=== PATIENT | male | born 1960 | race Caucasian/White ===

== ENCOUNTER 2016-12-12 10:27 | Emergency (ER) ==
[2016-12-12 10:36] VITALS: BP 185/83
--- NOTE | 2016-12-12 10:54 | PROVIDER DOCUMENTATION ---
HPI-Abdominal Pain/GI Problem - General Chief Complaint: Abdominal Pain Stated Complaint: GROIN PAIN Time Seen by Provider: 12/12/16 10:37 Source: patient Allergies/Adverse Reactions: Patient Allergies Allergy/AdvReac Type Severity Reaction Status Date / Time prednisone Allergy SHORTNESS Verified 08/17/15 10:32 OF BREATH Home Medications: Atenolol 50 mg PO DAILY 08/17/15 Hydrocodone/Acetaminophen [Bendena 10-325 Tablet] 1 tab PO TID 08/17/15 Morphine Sulfate [Ms Contin] 100 mg PO BID 08/17/15 - History of Present Illness-ABD Nature of Presenting Problems: Pt presents today c complaints of left inguinal pain and possible hernia. He reports that three days ago he was trying to lift a heavy fountain and felt a strain in his lower abdomen. He said that that night he noticed something in his inguinal area that "keeps popping in and out." He denies any change in bowel movements. He does report some intermittent pains. No other issues or complaints. Abdominal Pain Onset Location: reports: other (see hpi) Quality of Pain: reports: aching Severity in ED: reports: mild Onset/Duration: reports: 3 days ago Timing: reports: intermittent Last BM: 24 hours ago Dark Stools Present?: reports: none noticed Rectal Bleeding: reports: none Rectal Pain: reports: none Emesis Description: reports: none Bruising or Bleeding Gums?: No Similar Symptoms Previously?: No Recently seen or treated by another doctor?: No Review of Systems - Adult - REVIEW OF SYSTEMS - ADULT Constitutional: reports: no symptoms reported. denies: chills, fever Eyes: reports: no symptoms reported. denies: discharge, dry eyes Ears, Nose, Mouth & Throat: reports: no symptoms reported. denies: ear discharge, ear pain Cardiovascular: reports: no symptoms reported. denies: chest pain, edema Respiratory: reports: no symptoms reported. denies: chronic cough, dyspnea on exertion Gastrointestinal: reports: see HPI, abdominal pain. denies: difficulty swallowing, frequent heartburn Genitourinary: reports: see HPI. denies: dysuria, discharge Musculoskeletal: reports: no symptoms reported. denies: bone pain, back pain Integumentary: reports: no symptoms reported. denies: hives, hair loss Neurological: reports: no symptoms reported. denies: ataxia, dizziness/vertigo Psychiatric: reports: no symptoms reported. denies: anxiety, anti-depressant use Endocrine: reports: no symptoms reported Hematologic/Lymphatic: reports: no symptoms reported Allergic/Immunologic: reports: no symptoms reported All Other Systems: Reviewed and Negative Past History - Adult - PAST MEDICAL HISTORY-ADULT Review of Records: reports: Old Records Reviewed, Nursing Assessment Review, Medications Reviewed, Social history reviewed & non-contributory. 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) - FAMILY HISTORY Family History: reviewed, not pertinent Physical Exam-General - PHYSICAL EXAM-ADULT Initial Vital Signs Reviewed: Yes - CONSTITUTIONAL General Appearance: appears well, alert, no apparent distress - EYES Eyes: PERRL/EOMI, pink conjunctivae - HEAD, EARS, NOSE, MOUTH & THROAT HENMT: normocephalic/atraumatic, moist mucous membranes, normal ENT inspection - NECK Neck: non-tender, full range of motion, normal inspection - RESPIRATORY Respiratory: chest non-tender, lungs clear, normal breath sounds - CARDIOVASCULAR Cardiovascular: normal peripheral pulses, regular rate, rhythm, no edema - GASTROINTESTINAL (ABDOMEN) Abdominal Exam: normal bowel sounds, soft, no organomegaly, no pulsatile mass, tenderness (R inguinal area), hernia (L inguinal (reducible)). negative: abdominal bruit, abnormal bowel sounds, distended, guarding, rigid, rebound - GENITOURINARY Male Genitalia: normal genitalia, circumcised, hernia mass (L inguinal area ( reducible)). negative: epididymal tenderness, herpes-like lesion - LYMPHATIC Lymphatic: no adenopathy - MUSCULOSKELETAL Back Exam: normal inspection, no CVA tenderness, no vertebral tenderness Extremity: normal range of motion, non-tender, normal gait - SKIN Integumentary: normal color, normal turgor, warm/dry - NEUROLOGIC Neurologic: grossly normal, no motor/sensory deficits - PSYCHIATRIC Psych/Mental Status: normal mood/affect, normal thought content, normal thought process, oriented x 3 Progress - PLAN OF CARE/RESULTS Progress/Plan/Lab Results: Vital Signs Temp Pulse Resp BP Pulse Ox 12/12/16 10:34 98.3 F 65 18 185/83 100 prednisone Allergy (Verified 08/17/15 10:32) SHORTNESS OF BREATH rash Atenolol 50 mg PO DAILY 08/17/15 Atenolol [Tenormin] 50 mg PO DAILY #14 tablet 08/17/15 Hydrocodone/Acetaminophen [Bendena 10-325 Tablet] 1 tab PO TID 08/17/15 Morphine Sulfate [Ms Contin] 100 mg PO BID 08/17/15 Hernia reduced at bedside. Will have him f/u a surgeon. He requested Dr. Ferro. Departure - Departure Time of Disposition Order: 10:53 DIAGNOSIS: Reducible left inguinal hernia Disposition: HOME 01 Certified Medical Emergency: Emergent Condition: Good Additional Instructions: Take medication as prescribed. Follow up with your surgeon. Return to the ER for any new or worsening symptoms. ED Follow Up Instructions: You have been treated by a care provider in the Emergency Department. These instructions are being provided to you so you can have an understanding of how to care for yourself upon discharge. Upon discharge from the Emergency Department, you are responsible for making arrangements for follow-up care by a physician of your choice. Take all prescribed medications as directed. Return to the Emergency Department immediately for any new or worsening symptoms. You may call the Physician Referral phone number at [phone] to obtain a list of Physicians who are taking new patients. Prescriptions: Ibuprofen [Motrin] 800 mg PO Q8H PRN PRN #20 tablet PRN Reason: inflammation Omeprazole [Prilosec] 20 mg PO DAILY@0700 #20 capsule Referrals: None,PCP [Primary Care Provider] - Carmelo Deleon MD [STAFF PHYSICIAN] - Attestation - Physician/ Mid-level Attestation Patient care was provided by Mid-level provider (TETRYL SCREEN OPERATOR/PA):: Yes Mid-level provider:: Yan Reese Mid-level documentation review:: The Mid-level provider documentation, treatment plan and medical decision making was reviewed by the physician who agrees with all treatment and medical decision making by the MLP.
== END 2016-12-12 11:10 | disposition home or self-care (01) ==
LOC: ED 10:27
DX: K40.90 Unilateral inguinal hernia, without obstruction or gangrene, not specified as recurrent (principal); R10.32 Left lower quadrant pain; R10.813 Right lower quadrant abdominal tenderness; I10 Essential (primary) hypertension; Z79.899 Other long term (current) drug therapy; Z87.442 Personal history of urinary calculi; X58.XXXA Exposure to other specified factors, initial encounter
CPT/HCPCS: 99281

== ENCOUNTER 2017-01-28 12:22 | Emergency (ER) ==
[2017-01-28 15:25] LABS: URINE CULTURE NEEDED? NO; URINE MICRO REVIEW NEEDED? NO; URINE SOURCE CLEAN CATCH
[2017-01-28 15:32] LABS: BILIRUBIN URINE NEGATIVE (NEGATIVE); BLOOD URINE NEGATIVE (NEGATIVE); COLOR YELLOW; GLUCOSE URINE NEGATIVE (NEGATIVE); LEUKOCYTES URINE NEGATIVE (NEGATIVE); NITRITE URINE NEGATIVE (NEGATIVE); PROTEIN URINE NEGATIVE (NEGATIVE); TURBIDITY URINE CLEAR (CLEAR); UROBILINOGEN URINE NORMAL (NORMAL)
[2017-01-28 15:33] LABS: UR EPITHELIAL CELLS <10 /HPF (<10); URINE BACTERIA NEGATIVE /HPF; URINE RBC <10 /HPF (<10); URINE WBC <10 /HPF (<10)
--- NOTE | 2017-01-28 16:35 | Diag Imaging Result Document ---
PROCEDURE NAME: RENAL STONE SEARCH - 01/28/2017 CT ABDOMEN AND PELVIS WITHOUT ORAL OR INTRAVENOUS CONTRAST. DOSE REDUCTION PROTOCOL. COMPARISON: 04/26/2015. FINDINGS: Normal spleen and adrenal glands. No inflammation about the pancreas or gallbladder. No focal hepatic abnormality identified on this noncontrasted exam. There is scarring to each kidney. No renal stone or hydronephrosis. Moderate atherosclerosis. No aneurysmal dilatation to the aorta. No bowel obstruction. No inflammation about the appendix. No abscess. No free air. The urinary bladder is distended and appears normal. The prostate is not enlarged. Tiny left inguinal hernia. No bowel loop within this. There are scattered diverticula. IMPRESSION: 1. No renal stones or hydronephrosis although there is scarring to each kidney. 2. Diverticulosis. 3. Tiny left inguinal hernia filled with fat. No bowel loop within this. A preliminary report was given at 4:17 p.m..
[2017-01-28 16:37] LABS: MANUAL DIFF NEEDED? NO
[2017-01-28 16:39] LABS: BASO% 0.2 % (0.0-0.8); EOS# 0.07 X1000 (0.0-0.7); EOS% 0.8 % (0.0-10.0); HEMATOCRIT 39.8 % (42.0-52.0); HEMOGLOBIN 13.4 g/dL (14.0-18.0); LYMPH# 2.02 X1000 (1.2-3.4); LYMPH% 23.1 % (20.5-51.1); MCH 32.4 PG (27-31); MCHC 33.7 g/dL (33-37); MCV 96.4 FL (81-99); MONO# 0.62 X1000 (0.11-0.59); MONO% 7.1 % (1.7-9.3); MPV 8.8 FL (7.4-10.4); NEUT% 68.8 % (42.2-75.2); PLT 217 X1000 (130-400); RBC 4.13 XMIL (4.7-6.1)
[2017-01-28 17:11] LABS: AGAP 14; ALBUMIN 3.8 g/dL (3.5-5.0); ALKALINE PHOSPHATASE 57 U/L (32-122); AMYLASE 116 U/L (20-200); BUN 11 mg/dL (8-22); CALCIUM 9.1 mg/dL (8.8-10.2); CHLORIDE 103 mmol/L (98-107); COSMO 283; GOT 20 U/L (10-34); GPT 20 U/L (10-44); LIPASE 65 U/L (13-60); POTASSIUM 4.8 mmol/L (3.5-5.1); SODIUM 142 mmol/L (136-145); TCO2 25 mmol/L (25-35); TOTAL BILIRUBIN 0.26 mg/dL (0.20-1.00); TOTAL PROTEIN 6.5 g/dL (6.3-8.3)
--- NOTE | 2017-01-28 17:12 | PROVIDER DOCUMENTATION ---
HPI-Abdominal Pain/GI Problem - General Chief Complaint: Groin Pain Stated Complaint: GROIN PAIN,PASSED BLOOD LAST NIGHT PEEING Time Seen by Provider: 01/28/17 15:08 Source: patient Allergies/Adverse Reactions: Patient Allergies Allergy/AdvReac Type Severity Reaction Status Date / Time Corticosteroids Allergy Unknown Verified 01/06/17 16:03 (Glucocorticoids) prednisone Allergy SHORTNESS Verified 01/06/17 16:03 OF BREATH Home Medications: Home Medication List Medication Instructions Recorded Confirmed Last Taken Type Atenolol 100 mg PO DAILY 08/17/15 01/06/17 01/04/17 07:00 History LISINOpril [Prinivil] 20 mg PO DAILY 12/19/16 01/06/17 01/04/17 07:00 History Clonidine HCl 0.1 mg PO TID PRN #30 tablet 01/06/17 Unknown Rx Metoprolol Succinate E.r. [Toprol 50 mg PO DAILY #30 tablet 01/06/17 Unknown Rx Xl] Polyethylene Glycol 3350 [Miralax] 17 gm PO DAILY PRN PRN #10 01/06/17 Unknown Rx [email or web address] Ciprofloxacin HCl [Cipro] 500 mg PO Q12HR #20 tablet 01/28/17 Unknown Rx - History of Present Illness-ABD Nature of Presenting Problems: 56 yo with mid abdominal pain, L testicle pain, and L inguinal hernia. Reports that he is having increasing L testicle pain and peeing blood last nite. No fever or chills. Abdominal Pain Onset Location: reports: LLQ, periumbilical Quality of Pain: reports: aching (mild symptoms one month ago, increasing pain last 2 days) Review of Systems - Adult - REVIEW OF SYSTEMS - ADULT Constitutional: reports: no symptoms reported Eyes: reports: no symptoms reported Ears, Nose, Mouth & Throat: reports: no symptoms reported Cardiovascular: reports: no symptoms reported Respiratory: reports: no symptoms reported Gastrointestinal: reports: see HPI, abdominal pain Genitourinary: reports: see HPI, hematuria, other (scrotal pain). denies: dysuria Musculoskeletal: reports: back pain Psychiatric: reports: no symptoms reported Endocrine: reports: no symptoms reported Hematologic/Lymphatic: reports: no symptoms reported Allergic/Immunologic: reports: no symptoms reported Past History - Adult - PAST MEDICAL HISTORY-ADULT Review of Records: reports: Old Records Reviewed, Nursing Assessment Review, Medications Reviewed Major Childhood Illnesses: reports: denies history Cardiovascular: reports: HTN Respiratory: reports: denies history Gastrointestinal: reports: denies history Obstetrical/Gynecological: reports: denies history Genitourinary: reports: kidney stones Musculoskeletal: reports: other (facial fractures ) Neurological: reports: denies history Psychiatric: reports: denies history Endocrine/Immune: reports: denies history 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) - PRIOR SURGERIES/PROCEDURES Surgical/Procedure History: reports: reviewed, not pertinent - IMMUNIZATION STATUS Childhood Immunizations: See Nurse Assessment Flu Vaccine: See Nurse Assessment - FAMILY HISTORY Family History: reviewed, not pertinent Physical Exam-General - PHYSICAL EXAM-ADULT Initial Vital Signs Reviewed: Yes - CONSTITUTIONAL General Appearance: appears well, alert, no apparent distress - EYES Eyes: PERRL/EOMI - HEAD, EARS, NOSE, MOUTH & THROAT HENMT: moist mucous membranes, normal ENT inspection, pharynx normal - NECK Neck: non-tender, full range of motion, supple, normal inspection - RESPIRATORY Respiratory: chest non-tender, lungs clear, normal breath sounds - CARDIOVASCULAR Cardiovascular: regular rate, rhythm, no edema, no gallop, no JVD, no murmur - GASTROINTESTINAL (ABDOMEN) Abdominal Exam: normal bowel sounds, soft, no organomegaly, tenderness ( periumbilical), other (obvious hernial L inguinal area- increases with cough) - GENITOURINARY Male Genitalia: circumcised, epididymal tenderness, hernia mass, hydrocele, testicular tenderness (L sided) Rectal Exam: deferred - LYMPHATIC Lymphatic: no adenopathy - MUSCULOSKELETAL Back Exam: normal inspection, no CVA tenderness Extremity: normal range of motion, non-tender, normal gait, normal inspection, no pedal edema - NEUROLOGIC Neurologic: grossly normal, no motor/sensory deficits - PSYCHIATRIC Psych/Mental Status: normal mood/affect, normal thought content, normal thought process, oriented x 3 Progress - PLAN OF CARE/RESULTS Progress/Plan/Lab Results: Laboratory Tests 01/28/17 01/28/17 01/28/17 13:07 16:23 16:23 WBC 8.74 RBC 4.13 L Hgb 13.4 L Hct 39.8 L MCV 96.4 MCH 32.4 H MCHC 33.7 RDW Std Deviation 15.3 H Plt Count 217 MPV 8.8 Immature Gran % (Auto) 0.0 Neut % (Auto) 68.8 Lymph % (Auto) 23.1 Desha % (Auto) 7.1 Eos % (Auto) 0.8 Baso % (Auto) 0.2 Immature Gran # (Auto) 0.00 Neut # (Auto) 6.01 Lymph # (Auto) 2.02 Desha # (Auto) 0.62 H Eos # (Auto) 0.07 Baso # (Auto) 0.02 Sodium 142 Potassium 4.8 Chloride 103 Carbon Dioxide 25 Anion Gap 14 BUN 11 Creatinine 0.9 Estimated GFR/1.73 m2 > 60 BUN/Creatinine Ratio 12 Glucose 99 Calculated Osmolality 283 Calcium 9.1 Total Bilirubin 0.26 AST 20 ALT 20 Alkaline Phosphatase 57 Total Protein 6.5 Albumin 3.8 Globulin 2.7 Albumin/Globulin Ratio 1.4 Amylase 116 Lipase 65 H Urine Source CLEAN CATCH Urine Color YELLOW Urine Turbidity CLEAR Urine pH 6.0 Ur Specific Penrose 1.010 Urine Protein NEGATIVE Ur Glucose (Stick) NEGATIVE Ur Ketones (Stick) NEGATIVE Urine Blood NEGATIVE Urine Nitrite NEGATIVE Urine Bilirubin NEGATIVE Urobilinogen Dipstick NORMAL Urine Leukocytes NEGATIVE Urine WBC (Auto) <10 Urine RBC (Auto) <10 U Epithel Cells (Auto) <10 Urine Bacteria (Auto) NEGATIVE Orders Category Date Time Status Saline Loc DIRECTED Care 01/28/17 15:23 Active NPO Diet 01/28/17 15:23 Completed RENAL STONE SEARCH [CT] Stat Exams 01/28/17 15:26 Completed US SCROTUM [US] Stat Exams 01/28/17 15:26 Draft AMYLASE [CHEM] Stat Lab 01/28/17 16:23 Completed CBC WITH ELECTRONIC DIFF [HEME] Stat Lab 01/28/17 16:23 Completed COMPREHENSIVE METABOLIC PANEL [CHEM] Stat Lab 01/28/17 16:23 Completed LIPASE [CHEM] Stat Lab 01/28/17 16:23 Completed UA Reflex [URINALYSIS W/POSS RFLX CULT] [URINALYSIS] Lab 01/28/17 13:07 Completed Stat Vital Signs Temp Pulse Resp BP Pulse Ox 01/28/17 18:30 98.3 F 72 16 156/65 100 01/28/17 14:44 98.2 F 79 18 202/82 100 01/28/17 13:00 98.3 F 81 18 176/80 100 Corticosteroids (Glucocorticoids) Allergy (Verified 01/06/17 16:03) Unknown prednisone Allergy (Verified 01/06/17 16:03) SHORTNESS OF BREATH rash Atenolol 100 mg PO DAILY 08/17/15 LISINOpril [Prinivil] 20 mg PO DAILY 12/19/16 Clonidine HCl 0.1 mg PO TID PRN #30 tablet 01/06/17 Metoprolol Succinate E.r. [Toprol Xl] 50 mg PO DAILY #30 tablet 01/06/17 Polyethylene Glycol 3350 [Miralax] 17 gm PO DAILY PRN PRN #10 powd.pack Ciprofloxacin HCl [Cipro] 500 mg PO Q12HR #20 tablet 01/28/17 Laboratory 01/28/17 01/28/17 01/28/17 16:23 16:23 13:07 WBC 8.74 RBC 4.13 L Hgb 13.4 L Hct 39.8 L MCV 96.4 MCH 32.4 H MCHC 33.7 RDW Std Deviation 15.3 H Plt Count 217 MPV 8.8 Immature Gran % (Auto) 0.0 Neut % (Auto) 68.8 Lymph % (Auto) 23.1 Desha % (Auto) 7.1 Eos % (Auto) 0.8 Baso % (Auto) 0.2 Immature Gran # (Auto) 0.00 Neut # (Auto) 6.01 Lymph # (Auto) 2.02 Desha # (Auto) 0.62 H Eos # (Auto) 0.07 Baso # (Auto) 0.02 Sodium 142 Potassium 4.8 Chloride 103 Carbon Dioxide 25 Anion Gap 14 BUN 11 Creatinine 0.9 Estimated GFR/1.73 m2 > 60 BUN/Creatinine Ratio 12 Glucose 99 Calculated Osmolality 283 Calcium 9.1 Total Bilirubin 0.26 AST 20 ALT 20 Alkaline Phosphatase 57 Total Protein 6.5 Albumin 3.8 Globulin 2.7 Albumin/Globulin Ratio 1.4 Amylase 116 Lipase 65 H Urine Source CLEAN CATCH Urine Color YELLOW Urine Turbidity CLEAR Urine pH 6.0 Ur Specific Penrose 1.010 Urine Protein NEGATIVE Ur Glucose (Stick) NEGATIVE Ur Ketones (Stick) NEGATIVE Urine Blood NEGATIVE Urine Nitrite NEGATIVE Urine Bilirubin NEGATIVE Urobilinogen Dipstick NORMAL Urine Leukocytes NEGATIVE Urine WBC (Auto) <10 Urine RBC (Auto) <10 U Epithel Cells (Auto) <10 Urine Bacteria (Auto) NEGATIVE - CT/MRI 1 CT Study: Abdomen, Pelvis (no kidney stone , small L ingiunal hernia, diverticuli) - ULTRASOUND (By Radiology) 1 US Study: other (testicular- B hydroceles) - CHANGE OF SHIFT REPORT (ED Provider) Tentative Impression of Patient: L ingiunal hernia- no incarceration, reducuble. possible mild epidydimitis Departure - Departure Time of Disposition Order: 17:41 DIAGNOSIS: Hydrocele, Groin pain Inguinal hernia Qualifiers: Laterality: bilateral Disposition: HOME 01 Certified Medical Emergency: Emergent Condition: Stable Additional Instructions: Wear supportive underwear. Use tylenol or ibuprofen for discomfort. Avoid heavy lifting. Trial cipro for 10 days. follow up with your regular doctor if symptoms persist. You need surgery for hernia. ED Follow Up Instructions: You have been treated by a care provider in the Emergency Department. These instructions are being provided to you so you can have an understanding of how to care for yourself upon discharge. Upon discharge from the Emergency Department, you are responsible for making arrangements for follow-up care by a physician of your choice. Take all prescribed medications as directed. Return to the Emergency Department immediately for any new or worsening symptoms. You may call the Physician Referral phone number at [phone] to obtain a list of Physicians who are taking new patients. Prescriptions: Ciprofloxacin HCl [Cipro] 500 mg PO Q12HR #20 tablet Referrals: None,PCP [Primary Care Provider] - Instructions: Groin Strain, Inguinal Hernia, Adult, Care After, Scrotal Swelling
--- NOTE | 2017-01-28 18:09 | Diag Imaging Result Document ---
PROCEDURE NAME: US SCROTUM - 01/28/2017 SCROTAL ULTRASOUND: FINDINGS: There is normal size and echotexture to each testicle. No testicular mass. Blood flow is documented to both testicles. There are small bilateral hydroceles. There are small bilateral epididymal cysts. The largest is on the left measuring 1.1 cm. No scrotal skin thickening. IMPRESSION: Small bilateral hydroceles with small bilateral epididymal cysts. A preliminary report was given at 4:25 PM.
[2017-01-28 18:31] VITALS: BP 156/65
== END 2017-01-28 18:30 | disposition home or self-care (01) ==
LOC: ED 12:22
DX: K40.90 Unilateral inguinal hernia, without obstruction or gangrene, not specified as recurrent (principal); N43.3 Hydrocele, unspecified; R10.32 Left lower quadrant pain; K57.90 Diverticulosis of intestine, part unspecified, without perforation or abscess without bleeding; R10.33 Periumbilical pain; N50.812 Left testicular pain; R31.9 Hematuria, unspecified; M54.9 Dorsalgia, unspecified; R10.815 Periumbilic abdominal tenderness; I10 Essential (primary) hypertension; Z79.899 Other long term (current) drug therapy; Z87.442 Personal history of urinary calculi
CPT/HCPCS: 74176; 76870; 80053; 81001; 82150; 83690; 85025

== ENCOUNTER 2019-01-22 19:18 | Inpatient (IN) ==
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
[2019-01-22] MEDS ORDERED: NS 1,000 ML IV ONE ×2 (20:45)
[2019-01-22 21:11] LABS: BASO# 0.05 X1000 (0.0-0.2); BASO% 0.4 % (0.0-0.8); EOS# 0.05 X1000 (0.0-0.7); EOS% 0.4 % (0.0-10.0); HEMATOCRIT 48.8 % (42.0-52.0); HEMOGLOBIN 16.4 g/dL (14.0-18.0); IMM GRAN# 0.07 X1000 (0.0-0.04); IMM GRAN% 0.5 % (0.0-0.5); LYMPH# 1.44 X1000 (1.2-3.4); LYMPH% 11.1 % (20.5-51.1); MCH 32.1 PG (27-31); MCHC 33.6 g/dL (33-37); MCV 95.5 FL (81-99); MONO# 0.55 X1000 (0.11-0.59); MONO% 4.3 % (1.7-9.3); MPV 10.1 FL (7.4-10.4); NEUT# 10.76 X1000 (1.4-6.5); NEUT% 83.3 % (42.2-75.2); PLT 263 X1000 (130-400); RBC 5.11 XMIL (4.7-6.1); WBC 12.92 X1000 (4.8-10.8)
[2019-01-22 21:19] LABS: INR 0.85; PROTIME 12.3 Seconds (11.0-16.0)
[2019-01-22 21:24] LABS: PTT < 20.0 Seconds (22.3-41.8)
--- NOTE | 2019-01-22 21:28 | Diag Imaging Result Doc PS360 ---
EXAM: CHEST-1 VIEW 01/22/2019 HISTORY: flu TECHNIQUE: AP portable chest at 2121 COMMENT: The appearance the chest has not changed significantly since 12/29/2016. IMPRESSION: Stable chest. Electronically signed by Ra Linares 01/22/2019 9:26 PM
[2019-01-22] MEDS ORDERED: M.V.I.-12 10 ML, FOLIC ACID 1 MG, MAGNESIUM SULFATE 1 GM, THIAMINE 100 MG in NS 1,000 ML IV ONE (21:31)
[2019-01-22] MEDS ORDERED: ATIVAN IV ONE ×2 (21:38→23:42)
[2019-01-22 21:48] LABS: CK PROFILE 160 U/L (24-204)
[2019-01-22 21:51] LABS: GOT 43 U/L (10-34)
[2019-01-22 22:28] LABS: AGAP 30; ALB/GLOB RATIO 1.1; ALBUMIN 3.9 g/dL (3.5-5.0); ALKALINE PHOSPHATASE 106 U/L (32-122); BUN 15 mg/dL (8-22); CALCIUM 9.1 mg/dL (8.8-10.2); CHLORIDE 97 mmol/L (98-107); COSMO 280; CREATININE 1.2 mg/dL (0.7-1.2); GLUCOSE 66 mg/dL (70-104); GPT 12 U/L (10-44); POTASSIUM 4.7 mmol/L (3.5-5.1); SODIUM 141 mmol/L (136-145); TCO2 14 mmol/L (25-35); TOTAL BILIRUBIN 0.33 mg/dL (0.20-1.00); TOTAL PROTEIN 7.4 g/dL (6.3-8.3)
[2019-01-22 23:37] LABS: BILIRUBIN URINE NEGATIVE (NEGATIVE); BLOOD URINE SMALL (NEGATIVE); COLOR YELLOW; GLUCOSE URINE NEGATIVE (NEGATIVE); KETONE URINE 10 mg/dL (NEGATIVE); LEUKOCYTES URINE NEGATIVE (NEGATIVE); NITRITE URINE NEGATIVE (NEGATIVE); PH URINE 5.5; PROTEIN URINE 30 mg/dL (NEGATIVE); SP GRAVITY URINE 1.009; TURBIDITY URINE CLEAR (CLEAR); URINE SOURCE CLEAN CATCH; UROBILINOGEN URINE NORMAL (NORMAL)
[2019-01-22 23:39] LABS: UR EPITHELIAL CELLS <10 /HPF (<10); URINE BACTERIA NEGATIVE /HPF; URINE RBC <10 /HPF (<10); URINE WBC <10 /HPF (<10)
[2019-01-22] MEDS ORDERED: PROTONIX PO ONE (23:52)
[2019-01-22] MEDS ORDERED: MOTRIN PO ONE (23:53)
[2019-01-22 23:54] LABS: UR AMPHETAMINES QUAL NONE DETECTED (NONE DETECT); UR BARBITUATES QUAL NONE DETECTED (NONE DETECT); UR BENZODIAZEPIN QUAL NONE DETECTED (NONE DETECT); UR CANNABINOIDS QUAL NONE DETECTED (NONE DETECT); UR COCAINE QUAL NONE DETECTED (NONE DETECT); UR METHADONE QUAL NONE DETECTED (NONE DETECT); UR OPIATES QUAL NONE DETECTED (NONE DETECT); UR OXYCODONE QUAL NONE DETECTED (NONE DETECT); UR PCP QUAL NONE DETECTED (NONE DETECT)
[2019-01-23] MEDS ORDERED: HALDOL IM ONE (03:21)
[2019-01-23] MEDS ORDERED: TYLENOL PO ONE (04:23)
--- NOTE | 2019-01-23 06:57 | EKG Report ---
Test Performed on : 01/22/2019 11:43:51 PM Test Reason : tachycadia Blood Pressure : / mmHG Vent. Rate : 108 BPM Atrial Rate : 108 BPM P-R Int : 116 ms QRS Dur : 074 ms QT Int : 366 ms P-R-T Axes : 077 067 041 degrees QTc Int : 490 ms Sinus tachycardia. Otherwise normal ECG When compared with ECG of 15-JUN-2017 05:08, ST no longer depressed in Inferior leads ST no longer depressed in Anterolateral leads Nonspecific T wave abnormality has replaced inverted T waves in Inferior leads Unconfirmed Result
[2019-01-23] MEDS ORDERED: NS 1,000 ML IV ONE (07:12)
[2019-01-23 08:45] LABS: AGAP 21; BUN 22 mg/dL (8-22); CALCIUM 7.7 mg/dL (8.8-10.2); CHLORIDE 102 mmol/L (98-107); COSMO 278; CREATININE 1.2 mg/dL (0.7-1.2); ESTIMATED GFR > 60; GLUCOSE 53 mg/dL (70-104); POTASSIUM 4.4 mmol/L (3.5-5.1); SODIUM 139 mmol/L (136-145); TCO2 16 mmol/L (25-35)
[2019-01-23 09:20] LABS: ALLEN TEST YES; BE -10.6 mmoll (-3.0-3.0); BLOOD TYPE ARTERIAL; HCO3-(ACT) 16.6 mmoll (20.0-26.0); METHB 1.3 % (0.0-1.5); O2(CT) 17.3 mL/dL (15.0-23.0); O2HB 95.8 % (95.0-99.0); PCO2(98.6) 22 mmHg (35-45); PO2(98.6) 94 mmHg (60-100); SAMPLE BLOOD; SAO2 98.8 % (95.0-100.0); THB 12.8 g/dL (11.5-17.4); pH(98.6) 7.37 (7.35-7.45)
[2019-01-23 09:21] LABS: MODALITY CANNULA
[2019-01-23 10:17] LABS: ACETAMINOPHEN 13.5 ug/mL (10-30); SALICYLATES < 3.00 mg/dL (3-10)
[2019-01-23 10:29] LABS: ACETONE SERUM NEGATIVE (NEGATIVE)
[2019-01-23] MEDS ORDERED: ATIVAN IV ONE (10:41)
[2019-01-23] MEDS ORDERED: XOPENEX NEB INH PRN (11:09)
[2019-01-23] MEDS ORDERED: ZOFRAN IV PRN (11:09)
[2019-01-23] MEDS ORDERED: SODIUM CHLORIDE 0.9% INJ SCH (11:15)
[2019-01-23] MEDS: PROTONIX IV SCH (11:50)
[2019-01-23] MEDS: ATIVAN IV PRN ×2 (11:50→20:08)
[2019-01-23] MEDS: LIBRIUM PO SCH ×2 (12:15→18:15)
[2019-01-23 12:53] LABS: HEMOGLOBIN A1C 4.7 % (4.8-6.0)
[2019-01-23] MEDS: NS 1,000 ML IV SCH ×3 (13:08→20:52)
[2019-01-23 13:12] LABS: CK INDEX 8.1 (0.0-2.5); CK-MB 40.95 ng/mL (0.0-5.0)
[2019-01-23] MEDS: NICODERM PATCH TD SCH (13:59)
--- NOTE | 2019-01-23 16:43 | HISTORY AND PHYSICAL ---
PRIMARY CARE PHYSICIAN: Dr. Tung Euceda CHIEF COMPLAINT: Alcohol withdrawal. HISTORY OF PRESENT ILLNESS: Mr. Lopez is a 58-year-old male with a history of hypertension, nicotine dependence and alcohol dependence, who comes to the ER after he had been on a multiple day alcohol binge. There were reports of suicide ideation when he first arrived to the ER; however, he denies this currently. He reports that he has had multiple bottles of vodka over the past few days for reasons that are unclear at this time. It is possible there is some family dispute. He currently complains of alcohol withdrawal symptoms. He is tremulous and anxious. Otherwise, he denies any chest pain or abdominal pain. No nausea, vomiting or diarrhea at this time. When he arrived in the ER, his alcohol level was above 400, and he was acidotic. He received fluids overnight into the morning. This morning, his blood work still shows acidosis with a CO2 of 16 and an anion gap of 21, and his lactate has improved from 3.8 down from 6.5. He is tachycardic, however, and given the level of withdrawal, we will go ahead and put him in the ICU. PAST MEDICAL HISTORY: 1. Hypertension. 2. Nicotine dependence. 3. Alcohol dependence. 4. Possible h/o paroxysmal atrial fibrillation (not relayed by patient, found in chart records). PAST SURGICAL HISTORY: He has had facial reconstruction after a crush injury playing sports and a hernia repair. SOCIAL HISTORY: He smokes half a pack a day. He binges on vodka once every 2 weeks. Denies drug use. He is on disability for neck pain. He is . He has one child. FAMILY HISTORY: Noncontributory. REVIEW OF SYSTEMS: A 14-point review of systems was obtained and found to be negative with the exception of the HPI. ALLERGIES: Prednisone and glucocorticoids. HOME MEDICATIONS: Norvasc 10 mg daily, atenolol 25 mg p.o. b.i.d., Prinivil 20 mg daily, Motrin 600 mg as needed for pain. PHYSICAL EXAMINATION: VITAL SIGNS: Blood pressure is 127/72, heart rate is 103, respiratory rate is 16, O2 saturation 98% on room air, temperature is 98.7. GENERAL: This is a chronically ill-appearing 58-year-old male lying in hospital bed, in no acute distress. NEUROLOGICAL: He is awake and alert, tremulous. Follows commands without focal deficits. HEENT: Head is atraumatic and normocephalic. Pupils are equal, round and reactive to light. Oral mucosa is dry. NECK: Trachea is midline. There is no JVD. CHEST: Diminished but clear to auscultation. CARDIOVASCULAR: Regular rate and rhythm. S1 and S2 noted. There are no murmurs. GASTROINTESTINAL: Soft, nondistended and nontender. Bowel sounds positive. EXTREMITIES: No edema. Pulses 1+ bilaterally. DIAGNOSTIC DATA: Chest x-ray is negative. EKG sinus tachycardia with nonspecific T wave changes. WBC is 12.92, hemoglobin 16.4, hematocrit 48.8, platelet count 263. INR is 0.85. ABG on nasal cannula shows pH of 7.37, CO2 is 22, pO2 is 94, bicarb 16.6. Sodium is 139, potassium 4.4, chloride 102, CO2 is 16, anion gap 21, BUN is 22, creatinine 1.2, glucose 53, calcium 7.7, magnesium 2.2. Lactic acid repeat is 3.8. UA is negative for UTI. Toxicology shows salicylate level is negative. Acetaminophen level is 13.5. Drug screen is negative. Most recent alcohol level is 43. Acetone level is negative. ASSESSMENT AND PLAN: 1. Alcohol intoxication. The patient will be placed on a high dose Librium taper with p.r.n. Ativan and banana bag. We will check his folate and B12. 2. Metabolic acidosis. The patient does have a lactic acidosis which is likely from tissue hypoperfusion due to volume depletion/hypotension. He did have a few blood pressures in the 80s when he first arrived, but this was last night. Chest x-ray is negative. There is no nidus of infection at this time. 3. Nicotine dependence. We have advised the patient to quit smoking. We will write a nicotine patch and continue cessation education. 4. Hypertension, stable. Continue home medications. 5. Alcohol dependence. We are providing support for alcohol withdrawal. The patient will need manager intermediate assistance with Alcoholics Anonymous or psychotherapy or both. We will continue to educate him on a daily basis. 6. Paroxysmal atrial fibrillation. Currently sinus rhythm. He does not meet criteria for anticoagulation. ASA would be recommended given CHADs score (1 for HTN). Given the blood thinning properties of alcohol and his current intoxication, would hold until he is a bit more stable to reduce the chance of bleeding. 7. DVT prophylaxis with SCDs. Further recommendations to follow. Dictated by MURTAZA Guerin for Juana Preciado MD cc: MURTAZA Guerin MD I performed a face to face encounter on the patient. I reviewed all labs and imaging on the patient. I agree with the H&P as dictated. The patient presented to the ER with acute alcohol intoxication. On exam, the patient is alert and oriented x 2. His breath sounds are clear to auscultation bilaterally. He appears to be dehydrated with poor skin turgor. The patient will be admitted to the ICU and started on the librium and prn ativan. MTDD
[2019-01-23 19:15] LABS: CK-MB 69.45 ng/mL (0.0-5.0)
[2019-01-23] MEDS ORDERED: ASPIRIN EC PO ONE (19:54)
[2019-01-23] MEDS ORDERED: LOVENOX SUBQ SCH (20:00)
[2019-01-23] MEDS ORDERED: LABETALOL IV PRN (20:00)
[2019-01-23] MEDS: LIPITOR PO SCH (21:05)
[2019-01-23] MEDS: LOPRESSOR PO SCH (21:06)
[2019-01-23 21:16] LABS: CALCIUM 7.9 mg/dL (8.8-10.2); CREATININE 1.3 mg/dL (0.7-1.2); MAGNESIUM 2.1 mg/dL (1.5-2.7); PHOSPHORUS 2.5 mg/dL (2.7-4.5); POTASSIUM 4.1 mmol/L (3.5-5.1)
[2019-01-24] MEDS: M.V.I.-12 10 ML, FOLIC ACID 1 MG, MAGNESIUM SULFATE 1 GM, THIAMINE 100 MG in NS 1,000 ML IV SCH ×2 (00:13→23:08)
[2019-01-24] MEDS: ATIVAN IV PRN (00:13)
[2019-01-24] MEDS: LIBRIUM PO SCH ×5 (00:19→23:34)
[2019-01-24 01:56] LABS: CK INDEX 7.4 (0.0-2.5); CK-MB 67.55 ng/mL (0.0-5.0)
[2019-01-24 01:59] LABS: HEMATOCRIT 35.9 % (42.0-52.0); HEMOGLOBIN 12.2 g/dL (14.0-18.0); MCV 94.2 FL (81-99); MPV 8.7 FL (7.4-10.4); RBC 3.81 XMIL (4.7-6.1); RDW 12.7 % (11.5-14.5); WBC 7.6 X1000 (4.8-10.8)
[2019-01-24] MEDS ORDERED: TYLENOL PO ONE (02:20)
--- NOTE | 2019-01-24 06:06 | Diag Imaging Result Doc PS360 ---
EXAM : CT HEAD/C-SPINE W/O CONTRAST HISTORY: Fall,Pt sts he hit his head,neck pain,AMS TECHNIQUE: 1. CT head without contrast 2. CT cervical spine without contrast COMPARISON: Head compared to 10/15/2018 FINDINGS: Head: No parenchymal hemorrhage. No epidural or subdural hematoma. No subarachnoid hemorrhage. No mass identified on this noncontrasted exam. No hydrocephalus. No skull fracture. Cervical spine: Slight reversal of the normal curvature most pronounced at C4-5.. No precervical soft tissue swelling. No subluxation. No fracture. Mild to moderate degenerative changes in the lower cervical spine. IMPRESSION: Head: No hemorrhage. No injury. Cervical spine: No acute fracture. A preliminary report was given at 4:13 AM This exam was performed using automated exposure control, adjustment of mA or kV according to patient size, and/or use of iterative reconstruction technique. Electronically signed by Maximiliano Bagley 01/24/2019 6:03 AM
[2019-01-24 06:46] LABS: BASO# 0.01 X1000 (0.0-0.2); BASO% 0.1 % (0.0-0.8); EOS# 0.09 X1000 (0.0-0.7); EOS% 1.1 % (0.0-10.0); HEMATOCRIT 38.5 % (42.0-52.0); HEMOGLOBIN 12.9 g/dL (14.0-18.0); LYMPH# 0.87 X1000 (1.2-3.4); LYMPH% 10.5 % (20.5-51.1); MCHC 33.5 g/dL (33-37); MCV 95.5 FL (81-99); MONO# 0.74 X1000 (0.11-0.59); MPV 8.9 FL (7.4-10.4); NEUT# 6.55 X1000 (1.4-6.5); NEUT% 79.3 % (42.2-75.2); PLT 113 X1000 (130-400); RBC 4.03 XMIL (4.7-6.1); RDW 12.7 % (11.5-14.5); WBC 8.26 X1000 (4.8-10.8)
[2019-01-24 07:18] LABS: AGAP 11; ALB/GLOB RATIO 1.3; ALBUMIN 3.2 g/dL (3.5-5.0); ALKALINE PHOSPHATASE 82 U/L (32-122); BUN 14 mg/dL (8-22); CALCIUM 8.6 mg/dL (8.8-10.2); CHLORIDE 107 mmol/L (98-107); COSMO 283; ESTIMATED GFR > 60; GLUCOSE 92 mg/dL (70-104); GOT 62 U/L (10-34); GPT 20 U/L (10-44); POTASSIUM 4.6 mmol/L (3.5-5.1); SODIUM 142 mmol/L (136-145); TCO2 24 mmol/L (25-35); TOTAL BILIRUBIN 0.79 mg/dL (0.20-1.00); TOTAL PROTEIN 5.7 g/dL (6.3-8.3)
[2019-01-24 07:19] LABS: CHOLESTEROL 152 mg/dL (0-200); HDL 57 mg/dL (35-55); LDL 62 mg/dL; LIPASE 63 U/L (13-60); MAGNESIUM 2.2 mg/dL (1.5-2.7); TRIGLYCERIDES 166 mg/dL (39-160); VLDL 33 mg/dL
[2019-01-24] MEDS: LOPRESSOR PO SCH ×2 (08:49→20:25)
[2019-01-24] MEDS: DILAUDID IV PRN ×3 (08:49→20:41)
[2019-01-24] MEDS: VITAMIN B-1 PO SCH (08:49)
[2019-01-24] MEDS: THERA M PLUS PO SCH (08:49)
[2019-01-24] MEDS: NICODERM PATCH TD SCH (08:53)
[2019-01-24] MEDS ORDERED: M.V.I.-12 10 ML, FOLIC ACID 1 MG, MAGNESIUM SULFATE 1 GM, THIAMINE 100 MG in NS 1,000 ML IV SCH (09:00)
[2019-01-24 09:14] LABS: CK-MB 57.91 ng/mL (0.0-5.0)
[2019-01-24] MEDS: PROTONIX IV SCH (11:48)
[2019-01-24] MEDS: NS 1,000 ML IV SCH ×2 (12:00→23:01)
--- NOTE | 2019-01-24 16:02 | PROGRESS NOTE ---
DATE: 01/24/2019 SUBJECTIVE: The patient is resting comfortably. He has periods of confusion. He does complain of pain that is generalized. OBJECTIVE: Vital Signs: Temperature 98.5 degrees, blood pressure 154/94, heart rate 75, respirations 16, O2 saturations 100% on room air. General: This is a chronically ill-appearing elderly male lying in bed in no acute distress. Heart: S1, S2 normal. Regular rate and rhythm. Lungs: Equal air entry bilaterally. No crackles. No rales. Abdomen: Positive bowel sounds. Soft, nontender, nondistended. Extremities: No edema, no cyanosis. Neurologic : The patient is oriented to place and time. LABS: White blood cell count 8.2, hemoglobin 12, hematocrit 38, platelets 113, 000, sodium 142, potassium 4.6, chloride 107, CO2 24, BUN 14, creatinine 1, glucose 104, troponin 0.42. ASSESSMENT AND PLAN: 1. Acute alcohol intoxication. We will continue to monitor the patient closely. The patient is currently on Librium and p.r.n. Ativan. 2. Elevated troponin. The patient is currently on Lopressor and Lipitor and aspirin. Cardiology has been consulted for further recommendations. 3. Tobacco dependence. Continue on the NicoDerm patch. 4. Gastrointestinal prophylaxis. Continue on Protonix. 5. Thrombocytopenia. Will monitor the patient's platelet count closely. cc: Juana Preciado MD MTDD
[2019-01-24] MEDS: ASPIRIN EC PO SCH (17:12)
[2019-01-24] MEDS: LIPITOR PO SCH (20:25)
[2019-01-25] MEDS: DILAUDID IV PRN ×4 (03:24→20:14)
[2019-01-25] MEDS: LIBRIUM PO SCH ×4 (05:24→23:20)
[2019-01-25 06:13] LABS: BASO# 0.02 X1000 (0.0-0.2); BASO% 0.2 % (0.0-0.8); EOS# 0.19 X1000 (0.0-0.7); EOS% 2.2 % (0.0-10.0); HEMATOCRIT 40.2 % (42.0-52.0); HEMOGLOBIN 13.6 g/dL (14.0-18.0); LYMPH% 12.8 % (20.5-51.1); MCH 32.4 PG (27-31); MCHC 33.8 g/dL (33-37); MCV 95.7 FL (81-99); MONO# 1.01 X1000 (0.11-0.59); MONO% 11.8 % (1.7-9.3); MPV 9.5 FL (7.4-10.4); NEUT# 6.26 X1000 (1.4-6.5); PLT 91 X1000 (130-400); RDW 12.6 % (11.5-14.5); WBC 8.58 X1000 (4.8-10.8)
[2019-01-25 06:38] LABS: AGAP 10; ALBUMIN 2.9 g/dL (3.5-5.0); ALKALINE PHOSPHATASE 77 U/L (32-122); BUN 6 mg/dL (8-22); CALCIUM 8.4 mg/dL (8.8-10.2); CHLORIDE 104 mmol/L (98-107); COSMO 271; CREATININE 0.7 mg/dL (0.7-1.2); ESTIMATED GFR > 60; GLUCOSE 88 mg/dL (70-104); GOT 47 U/L (10-34); GPT 18 U/L (10-44); MAGNESIUM 2.3 mg/dL (1.5-2.7); POTASSIUM 3.6 mmol/L (3.5-5.1); SODIUM 137 mmol/L (136-145); TCO2 23 mmol/L (25-35); TOTAL BILIRUBIN 0.55 mg/dL (0.20-1.00); TOTAL PROTEIN 5.7 g/dL (6.3-8.3)
[2019-01-25] MEDS: NS 1,000 ML IV SCH ×2 (06:46→12:14)
[2019-01-25] MEDS: NICODERM PATCH TD SCH (08:06)
[2019-01-25] MEDS: VITAMIN B-1 PO SCH (08:06)
[2019-01-25] MEDS: ASPIRIN EC PO SCH (08:06)
[2019-01-25] MEDS: THERA M PLUS PO SCH (08:06)
[2019-01-25] MEDS: LOPRESSOR PO SCH ×2 (08:07→20:11)
--- NOTE | 2019-01-25 09:56 | ECHO REPORT ---
ORDER DATE: 01/24/2019 MEASUREMENTS: Left ventricular end-diastolic diameter 4.3, end-systolic murmur 3.3, septal thickness 0.9, posterior wall thickness 0.9, aortic root 3.3, left atrium 3.6. SUMMARY: 1. Technically difficult study due to limited acoustic window quality. 2. Aortic valve is not well imaged but appears to open adequately on 2-dimensional images. Peak gradient across the aortic valve is less than 10 mmHg. Mitral and tricuspid valves are without evidence of structural abnormality, while pulmonic valve is not well-demonstrated. There is mild mitral regurgitation and trace tricuspid regurgitation. The aortic root is normal in size. 3. Normal left ventricular dimensions suggested. Estimated left ejection fraction appears to be approximately 50%. No obvious regional wall motion abnormality can be appreciated. Doppler suggests grade 1 left ventricular diastolic dysfunction. Left atrium, right atrium, and right ventricle are normal in size with grossly preserved right ventricular systolic function. 4. No pericardial effusion. 5. Appearance of inferior vena cava suggests normal central venous pressure. cc: MD Juana Cameron MD
[2019-01-25] MEDS: PROTONIX IV SCH (10:41)
--- NOTE | 2019-01-25 13:05 | PROGRESS NOTE ---
DATE: 01/25/2019 SUBJECTIVE: The patient is sitting up eating breakfast. He reports generalized aches and pains but otherwise has no other complaints. OBJECTIVE: Vital Signs: Temperature 98.4 degrees, blood pressure 152/91, heart rate 68, respirations 10, O2 saturation 97% on room air. General: General this is an elderly male lying in bed in no acute distress. Heart: S1, S2 normal. Regular rate and rhythm. Lungs: Equal air entry bilaterally. No crackles. No rales. Abdomen: Positive bowel sounds. Soft, nontender, nondistended. Extremities: No edema. No cyanosis. Neurologic: The patient is alert and oriented x3. LABORATORY DATA: White blood cell count 8.5, hemoglobin 13, hematocrit 40, platelets 91,000. Sodium 137, potassium 3.6, chloride 104, CO2 of 23, BUN 6, creatinine 0.7, glucose 88, calcium 8.4. ASSESSMENT AND PLAN: 1. Acute alcohol intoxication. Improved. Continue on Librium. 2. Elevated troponin. The patient denies having any chest pain. Continue on aspirin. 3. Thrombocytopenia. We will continue to monitor the patient's platelet count closely. The patient does not appear to have any bleeding. We will order an abdominal ultrasound to assess the spleen. 4. Gastrointestinal prophylaxis. Continue on protonix. cc: Juana Preciado MD MTDD
[2019-01-25] MEDS: LIPITOR PO SCH (20:11)
[2019-01-25] MEDS: M.V.I.-12 10 ML, FOLIC ACID 1 MG, MAGNESIUM SULFATE 1 GM, THIAMINE 100 MG in NS 1,000 ML IV SCH (23:20)
[2019-01-26] MEDS: DILAUDID IV PRN ×5 (02:54→20:50)
[2019-01-26 05:41] LABS: BASO# 0.01 X1000 (0.0-0.2); BASO% 0.1 % (0.0-0.8); EOS# 0.28 X1000 (0.0-0.7); HEMATOCRIT 40.3 % (42.0-52.0); HEMOGLOBIN 13.8 g/dL (14.0-18.0); LYMPH# 1.12 X1000 (1.2-3.4); LYMPH% 15.9 % (20.5-51.1); MCH 32.5 PG (27-31); MCHC 34.2 g/dL (33-37); MONO# 0.63 X1000 (0.11-0.59); MONO% 8.9 % (1.7-9.3); MPV 9.2 FL (7.4-10.4); NEUT# 5.01 X1000 (1.4-6.5); NEUT% 71.1 % (42.2-75.2); PLT 86 X1000 (130-400); RBC 4.24 XMIL (4.7-6.1); RDW 12.3 % (11.5-14.5); WBC 7.05 X1000 (4.8-10.8)
[2019-01-26] MEDS: LIBRIUM PO SCH (06:09)
[2019-01-26 06:49] LABS: AGAP 11; ALB/GLOB RATIO 1.1; ALBUMIN 3.3 g/dL (3.5-5.0); ALKALINE PHOSPHATASE 82 U/L (32-122); BUN 6 mg/dL (8-22); CALCIUM 8.8 mg/dL (8.8-10.2); CHLORIDE 105 mmol/L (98-107); COSMO 278; CREATININE 0.7 mg/dL (0.7-1.2); ESTIMATED GFR > 60; GLUCOSE 90 mg/dL (70-104); GOT 36 U/L (10-34); GPT 20 U/L (10-44); SODIUM 141 mmol/L (136-145); TCO2 25 mmol/L (25-35); TOTAL BILIRUBIN 0.53 mg/dL (0.20-1.00); TOTAL PROTEIN 6.3 g/dL (6.3-8.3)
--- NOTE | 2019-01-26 07:52 | EKG Report ---
Test Performed on : 01/24/2019 06:49:41 AM Test Reason : chest pain Blood Pressure : / mmHG Vent. Rate : 082 BPM Atrial Rate : 082 BPM P-R Int : 140 ms QRS Dur : 092 ms QT Int : 404 ms P-R-T Axes : 046 041 028 degrees QTc Int : 472 ms Normal sinus rhythm. Normal ECG When compared with ECG of 23-JAN-2019 20:15, (Unconfirmed) premature ventricular complexes. are no longer present Confirmed by Wood LYMAN, Rex Mcelroy ([id number]) on 01/26/2019 9:12:37 PM
--- NOTE | 2019-01-26 07:57 | EKG Report ---
Test Performed on : 01/23/2019 8:15:36 PM Test Reason : KL Blood Pressure : / mmHG Vent. Rate : 104 BPM Atrial Rate : 104 BPM P-R Int : 148 ms QRS Dur : 086 ms QT Int : 366 ms P-R-T Axes : 063 041 028 degrees QTc Int : 481 ms Sinus tachycardia. with occasional premature ventricular complexes. Otherwise normal ECG When compared with ECG of 22-JAN-2019 23:43, (Unconfirmed) premature ventricular complexes. are now present Nonspecific T wave abnormality, improved in Inferior leads Confirmed by Rex Muir MD ([id number]) on 01/26/2019 9:11:38 PM
[2019-01-26] MEDS: LOPRESSOR PO SCH ×2 (08:11→20:49)
[2019-01-26] MEDS: VITAMIN B-1 PO SCH (08:11)
[2019-01-26] MEDS: THERA M PLUS PO SCH (08:11)
[2019-01-26] MEDS: ASPIRIN EC PO SCH (08:11)
[2019-01-26] MEDS: NICODERM PATCH TD SCH (08:12)
--- NOTE | 2019-01-26 09:46 | CONSULTATION ---
DATE OF CONSULTATION: 01/24/2019 IMPRESSION: 1. Abnormal troponin level. Clinical presentation with alcohol withdrawal syndrome. Absence of chest pain, no acute ischemic changes on ECG, and pattern of cardiac enzymes probably most consistent with noncardiac/skeletal muscle etiology such as rhabdomyolysis. CPK-MB index, however, is abnormal, and probably merits further investigation. 2. Currently admitted with alcohol withdrawal syndrome. 3. Hypertension. 4. Nicotine dependence. RECOMMENDATIONS: 1. Echocardiography. 2. As patient recuperates, consider further the introduction of stress testing for screening purposes. HISTORY: This is a 58-year-old white male with a past history of hypertension, alcohol dependence, and nicotine dependence who was admitted after he presented to the emergency room following a multiple-day alcohol binge. He reportedly demonstrated suicidal ideation. He was tremulous and anxious. He had no chest pain. He was treated with IV fluids. He manifested tachycardia on presentation, and an elevated lactate level, and metabolic acidosis with an anion gap of 21. He has not had any chest discomfort, and reiterates this to me. He is not aware of any previous cardiac problems. Cardiac enzymes were obtained and demonstrated an abnormal troponin level, prompting cardiology consultation. PAST MEDICAL HISTORY: 1. Hypertension. 2. Alcohol dependence. 3. Nicotine dependence. PAST SURGICAL HISTORY: Facial reconstruction following a crush injury while playing baseball. He is status post hernia repair. ALLERGIES: He is allergic or intolerant to corticosteroids and prednisone. MEDICATIONS PRIOR TO ADMISSION: As listed. SOCIAL HISTORY: He smokes one and a half packs of cigarettes per day. He binges on vodka about every 2 weeks. He is . He is on disability. FAMILY HISTORY: Negative for premature coronary artery disease REVIEW OF SYSTEMS: PULMONARY: Negative. GASTROINTESTINAL: Negative. CONSTITUTIONAL: Negative beyond history of present illness. Remainder of review of systems negative/noncontributory beyond history of present illness with 14 total systems reviewed. PHYSICAL EXAMINATION: GENERAL: This is a middle-aged white male who appears older than stated age, in no significant distress. VITAL SIGNS: Blood pressure 151/99, heart rate 86, oxygen saturation 100%. HEENT: Extraocular muscles appear intact. Mucous membranes are moist. NECK: Supple without jugular venous distention. There are no carotid bruits. CHEST: Clear to auscultation. CARDIAC: Exam reveals a regular rate and rhythm without appreciable murmur or gallop. ABDOMEN: Soft. Bowel sounds audible. EXTREMITIES: Without edema. NEUROLOGIC: Does seem to be alert and fully oriented. Speech is full. He moves all 4 extremities equally well. DIAGNOSTICS: ECG obtained during admission demonstrated sinus tachycardia but is was otherwise within normal limits. LABORATORY DATA: White blood cell count 8.26, hematocrit 38.5, hemoglobin 12.9, platelet count 113. Sodium 142, potassium 4.6, chloride 107, carbon dioxide 24, BUN 14, creatinine 1.0, glucose 104. Initial troponin less than 0.01 with followup troponins of 0.338, 0.445, and 0.423. Initial CPK was 160, with followup CPKs of 506 and 879 on January 23 and January 24 respectively. CPK- MB indices ranged from 8.1 to 7.0. cc: River Elliott MD
--- NOTE | 2019-01-26 10:46 | Diag Imaging Result Doc PS360 ---
EXAM: US SPLEEN (LIMITED) 01/26/2019 HISTORY: assess for splenomegaly TECHNIQUE: Ultrasound of the spleen. COMMENT: The spleen measures 11.6 x 5.2 x 12.5 cm. This is within the normal range. The echogenicity is normal in appearance. IMPRESSION: No definite abnormality. Electronically signed by Ra Linares 01/26/2019 10:44 AM
[2019-01-26] MEDS: PROTONIX IV SCH (12:00)
--- NOTE | 2019-01-26 16:32 | PROGRESS NOTE ---
DATE: 01/26/2019 CARDIOLOGY FOLLOW-UP NOTE: SUBJECTIVE: Patient continues without chest discomfort or dyspnea on room air. His confusion appears to have improved, although he seems to be still mildly confused. OBJECTIVE: Vital signs: Blood pressure 161/91, heart rate 92, oxygen saturation 99% on room air. Neck: There is no significant jugular venous distention. Chest: Clear to auscultation. Cardiac: Exam reveals a regular rate and rhythm without appreciable murmur, rub, or gallop. Extremities: Without edema. LABORATORY DATA: Includes a white blood cell count of 7.05, hematocrit 40.3, hemoglobin 13.8, platelet count of 86,000. Sodium 141, potassium 4.0, chloride 105, carbon dioxide 25, BUN 6, creatinine 0.7. IMPRESSION: 1. Recent abnormal troponin level and CPK-MB index. Clinical significance unclear. There has been no chest pain or changes on ECG. 2. Currently admitted with alcohol withdrawal syndrome, which is clinically stabilized. 3. Hypertension. 4. Nicotine dependence. RECOMMENDATIONS: Arrange screening stress myocardial perfusion study. If this is negative, it would be reasonable for patient to be discharged to home from a cardiovascular standpoint. cc: River Elliott MD
[2019-01-26] MEDS: LIPITOR PO SCH (20:50)
--- NOTE | 2019-01-26 20:50 | PROGRESS NOTE ---
DATE: 01/26/2019 SUBJECTIVE: The patient is resting comfortably in bed. He has no complaints at this time. OBJECTIVE: Vital Signs: Temperature 98.1 degrees, blood pressure 161/91, heart rate 92, respirations 20, O2 saturation 99% on room air. General: This is a chronically ill-appearing elderly male lying in bed in no acute distress. Heart: S1, S2 normal. Regular rate and rhythm. Lungs: Equal air entry bilaterally. No crackles, no rales. Abdomen: Positive bowel sounds. Soft, nontender, nondistended. Extremities: No edema, no cyanosis. Neuro: The patient is alert and oriented x3. LABS: Hemoglobin 13, hematocrit 40, platelets 86,000, sodium 141, potassium 4, chloride 105, CO2 25, BUN 6, creatinine 0.7, glucose 90. ASSESSMENT AND PLAN: 1. Acute alcohol intoxication. Resolved. 2. Thrombocytopenia. The splenic edge ultrasound was unremarkable. The HIT antibody assay is pending. Will consult Hematology. 3. Elevated troponin. The patient is scheduled to undergo a stress test tomorrow. 4. Gastrointestinal prophylaxis. Continue on Protonix. 5. Alcohol abuse. The patient has been counseled about cessation. 6. Will consult physical therapy. cc: Juana Preciado MD MTDD
[2019-01-27] MEDS: DILAUDID IV PRN ×4 (01:39→23:02)
[2019-01-27] MEDS: M.V.I.-12 10 ML, FOLIC ACID 1 MG, MAGNESIUM SULFATE 1 GM, THIAMINE 100 MG in NS 1,000 ML IV SCH (01:40)
[2019-01-27 07:06] LABS: HEMATOCRIT 40.6 % (42.0-52.0); HEMOGLOBIN 13.8 g/dL (14.0-18.0); MCH 32.4 PG (27-31); MCV 95.3 FL (81-99); MPV 9.5 FL (7.4-10.4); RBC 4.26 XMIL (4.7-6.1); RDW 12.3 % (11.5-14.5); WBC 6.47 X1000 (4.8-10.8)
[2019-01-27 07:17] LABS: AGAP 12; ALB/GLOB RATIO 1.1; ALBUMIN 3.3 g/dL (3.5-5.0); ALKALINE PHOSPHATASE 76 U/L (32-122); BUN 6 mg/dL (8-22); CALCIUM 8.1 mg/dL (8.8-10.2); CHLORIDE 104 mmol/L (98-107); COSMO 276; CREATININE 0.7 mg/dL (0.7-1.2); ESTIMATED GFR > 60; GLUCOSE 82 mg/dL (70-104); GOT 34 U/L (10-34); GPT 23 U/L (10-44); POTASSIUM 3.4 mmol/L (3.5-5.1); SODIUM 140 mmol/L (136-145); TCO2 24 mmol/L (25-35); TOTAL PROTEIN 6.2 g/dL (6.3-8.3)
[2019-01-27] MEDS ORDERED: LEXISCAN ONE (08:06)
[2019-01-27] MEDS ORDERED: AMINOPHYLLINE ONE (08:23)
[2019-01-27] MEDS: NICODERM PATCH TD SCH (11:13)
[2019-01-27] MEDS: LOPRESSOR PO SCH ×2 (11:13→23:02)
[2019-01-27] MEDS: THERA M PLUS PO SCH (11:13)
[2019-01-27] MEDS: VITAMIN B-1 PO SCH (11:13)
[2019-01-27] MEDS: ASPIRIN EC PO SCH (11:13)
[2019-01-27] MEDS: PROTONIX IV SCH (11:22)
[2019-01-27] MEDS ORDERED: KLOR-CON PO ONE (11:53)
[2019-01-27 12:28] LABS: PHOSPHORUS 3.1 mg/dL (2.7-4.5)
[2019-01-27] MEDS: FOLIC ACID PO SCH (12:34)
--- NOTE | 2019-01-27 12:56 | PROGRESS NOTE ---
DATE: 01/27/2019 SUBJECTIVE: The patient is resting comfortable in bed. The patient is awake, not in any obvious distress. OBJECTIVE: Vital signs: Vital signs are as follows: Temperature 98.6 degrees, pulse 97, respirations 20, blood pressure 144/84, oxygen saturation is 99%. HEENT: Atraumatic, normocephalic. Cardiovascular system: S1, S2. Respiratory system: Has evidence of good air entry bilaterally. Abdomen: Soft, nontender. No masses felt. Central nervous system: No obvious focal deficit noted. LABORATORY DATA: Sodium is 140, potassium 3.4, chloride is 104, bicarbonate 24. BUN is 6, creatinine 0.7. IMAGING STUDIES: EKG shows evidence of sinus tachycardia with occasional PVCs. ASSESSMENT AND PLAN: 1. Elevated troponin/probable non-ST elevation myocardial infarction. Cardiology consulted. The patient has had cardiac stress test done this morning. 2. Alcoholism. The patient counseled about cessation. In the meanwhile, maintain patient on thiamine, folic acid, as well as multivitamin. Check magnesium and phosphorus levels. 3. Thrombocytopenia, most likely secondary to effect of alcohol in the bone marrow. I expect the patient's platelet count to improve over time, as far as patient abstains from alcohol. 4. Deep vein thrombosis prophylaxis. Sequential compression devices. 5. Gastrointestinal prophylaxis. Proton pump inhibitor. DISPOSITION: The patient can possibly be discharged home today if his cardiac stress test comes back within normal limits. cc: Sukumar Schmidt MD
--- NOTE | 2019-01-27 15:06 | HEMO/ONC CONSULTATION ---
DATE: 01/27/2019 CHIEF COMPLAINT: We were consulted for further evaluation of patient's thrombocytopenia. HISTORY OF PRESENT ILLNESS: Mr Lopez is a 58-year-old male that presented to the ER after a multiple day alcohol binge. The patient said he has been drinking multiple bottles of vodka over the few days before being admitted. The patient presented to the ER complaining of alcohol withdrawal symptoms. Very anxious, tremulous. Patient denied any chest pain, fevers. No nausea, vomiting, diarrhea. While in the emergency department, patient's was found to have an alcohol level 400. The patient was acidotic, and the patient was admitted at that time for further evaluation and management. Since patient has been admitted, platelet count of continue to slowly trend downward. PAST MEDICAL HISTORY: Hypertension, nicotine dependence, alcohol dependence, paroxysmal atrial fibrillation. PAST SURGICAL HISTORY: Facial reconstruction surgery and a hernia repair. SOCIAL HISTORY: Smokes half pack a day. Binge drinks on alcohol once every couple weeks. Denies any illicit drug use. FAMILY HISTORY: Noncontributory. ALLERGIES: Prednisone and glucocorticoids. HOME MEDICATIONS: 1. Norvasc. 2. Atenolol. 3. Prinivil. 4. Motrin. REVIEW OF SYSTEMS: Negative other than in HPI. PHYSICAL EXAMINATION: Vital Signs: Temperature of 97.6, heart rate 82, respiratory rate 20, blood pressure 161/92, saturating 99% on room air. General: Patient is awake, lying in bed, no acute distress noted. HEENT: Anicteric. Pupils PERRLA. Mucous membranes moist. Neck: Supple. Trachea midline. No JVD. Lymph node survey: No palpable lymphadenopathy. Cardiovascular: S1, S2. Regular rate and rhythm. Lungs: Bilateral breath sounds clear to auscultation. Abdomen: Soft, nontender. Bowel sounds present in all 4 quadrants. Skin: Warm, dry, and intact. Neurologic: Alert and oriented x3. No focal deficits noted. LABORATORY DATA: White blood cell count 6.47, hemoglobin 13.8, hematocrit 40.6, platelets are 85,000. Potassium 3.4, BUN 6, creatinine 0.7. RADIOLOGY RESULTS: Spleen ultrasound showed a normal spleen size, no acute abnormality. ASSESSMENT AND PLAN: 1. Thrombocytopenia: Platelet counts today are 85,000. Continue with vitamin B12 as ordered. No splenomegaly noted. Most likely this thrombocytopenia is caused by his chronic alcohol use and liver damage. Just continue to monitor at this time. Transfuse for platelets less than 20,000 or for any signs of bleeding. 2. Alcohol abuse: Patient has been counseled about cessation. 3. Elevated troponin: Continue with recommendation by primary medical team and Cardiology. 4. Gastrointestinal prophylaxis. Continue Protonix as ordered. 5. Supportive care: Continue physical therapy as ordered. Plan of care discussed with Dr. Padilla. Dictated by MURTAZA Canela for Jose Padilla MD cc: MURTAZA Canela MD
--- NOTE | 2019-01-27 16:48 | PROGRESS NOTE ---
DATE: 01/27/2019 SUBJECTIVE: Patient reports neck discomfort, as well as some chest discomfort and describes the symptoms rather vaguely. He also reports some back discomfort. He seems to be much more awake and interactive. OBJECTIVE: Vital Signs: Blood pressure 141/85, heart rate 84, oxygen saturation 100%. Neck: There is no significant jugular venous distention. Chest: Clear to auscultation. Cardiac Exam: Reveals a regular rate and rhythm without appreciable murmur or gallop. There is no evidence of peripheral edema. DIAGNOSTICS: Stress myocardial perfusion study (Lexiscan sestamibi) demonstrates perfusion abnormality in distribution of left anterior descending coronary with mild to moderate reversibility in the basal to mid anteroseptal region, and a severe, but small fixed defect in the very apex. Underlying regional coronary disease in distribution of left anterior descending coronary artery suggested. LABORATORY DATA: Includes a white blood cell count of 6.47, hematocrit 40.6, hemoglobin 13.8, platelet count 85. Sodium 140, potassium 3.4, chloride 104, carbon dioxide 24, BUN 6, creatinine 0.7, glucose 82. IMPRESSION: 1. Recent abnormal troponin. Small non ST elevation myocardial infarction suggested. Myocardial perfusion study abnormal in distribution of left anterior descending coronary artery. The patient has not had much angina if any at all. 2. Alcoholism. 3. Mild thrombocytopenia, probably related to alcohol. RECOMMENDATIONS: Favor going ahead with cardiac catheterization selective coronary angiography for definitive evaluation of patient's abnormal troponin and abnormal stress myocardial perfusion study. The rationale for this approach along with potential hazards were discussed with the patient and he wished to proceed. cc: River Elliott MD
--- NOTE | 2019-01-27 17:07 | Diag Imaging Result Document ---
PROCEDURE NAME: MYOCARDIAL PERF SCAN, STR/REST - 01/27/2019 STUDY: Lexiscan sestamibi interpretation. SUMMARY: The patient was administered 10.8 mCi of technetium-99m sestamibi, after which resting cardiac images were obtained. The patient was subsequently administered Lexiscan 0.4 mg intravenously, after which the heart rate went from 89 beats per minute to 112 beats per minute. The blood pressure went from 136/88 to 87/65. With Lexiscan, the patient reported moderate chest pressure, which ultimately improved after administration of IV aminophylline. Following the administration of Lexiscan, the patient was administered 32.3 mCi of technetium 99-m sestamibi after which gated stress cardiac images were obtained. The patient was subsequently administered aminophylline 125 mg intravenously. Baseline ECG demonstrates sinus rhythm and mild nonspecific T-wave abnormality. With Lexiscan, there were no diagnostic ST-segment changes. SPECT images were reconstructed in the short, horizontal, vertical long axis. Review of these images demonstrated a small severe defect in uptake involving the apex, left ventricle on stress images which appears similar on resting images. There is also mild to moderate diminished activity in the anteroseptal region of the left ventricle on stress images which improves, but does not normalize on resting images. There is mildly diminished activity in the inferior wall with stress images which appears similar on resting images. Gated images demonstrate a calculated left ventricular ejection fraction of 60% with symmetrical wall motion/thickening. CONCLUSIONS: 1. Adequate response to Lexiscan. 2. Clinically, the patient reported moderate chest pressure with Lexiscan. 3. Electrocardiographically negative for Lexiscan induced myocardial ischemia. 4. Lexiscan sestamibi images demonstrate small severe defect in the apex of the left ventricle on stress and resting images to a similar degree, suggesting previous small apical infarct. There is mild to moderate reversibility in the basal to mid anteroseptal region, as described. Inducible myocardial ischemia and distribution of left anterior descending coronary is suggested. Mildly diminished activity in the inferior wall is seen on both stress and resting images with associated preserved wall motion. This is probably due to diaphragm attenuation artifact. Normal left ventricular systolic function demonstrated. cc: River Elliott MD
[2019-01-27] MEDS: LIPITOR PO SCH (23:02)
[2019-01-28] MEDS: ATIVAN IV PRN ×3 (02:12→22:04)
[2019-01-28] MEDS: DILAUDID IV PRN ×4 (05:34→23:34)
[2019-01-28 06:46] LABS: AGAP 11; BUN 9 mg/dL (8-22); CALCIUM 9.7 mg/dL (8.8-10.2); CHLORIDE 104 mmol/L (98-107); COSMO 282; CREATININE 0.9 mg/dL (0.7-1.2); ESTIMATED GFR > 60; GLUCOSE 99 mg/dL (70-104); POTASSIUM 4.2 mmol/L (3.5-5.1); SODIUM 142 mmol/L (136-145); TCO2 27 mmol/L (25-35)
[2019-01-28] MEDS: M.V.I.-12 10 ML, FOLIC ACID 1 MG, MAGNESIUM SULFATE 1 GM, THIAMINE 100 MG in NS 1,000 ML IV SCH ×2 (08:25→23:35)
[2019-01-28] MEDS ORDERED: HEPARIN 1000 UNITS/NS 2,000 UNIT/1,000 ML IV.SOLN ONE (08:25)
[2019-01-28 08:38] LABS: BASO# 0.01 X1000 (0.0-0.2); BASO% 0.1 % (0.0-0.8); EOS# 0.29 X1000 (0.0-0.7); HEMATOCRIT 40.4 % (42.0-52.0); HEMOGLOBIN 13.6 g/dL (14.0-18.0); LYMPH# 1.03 X1000 (1.2-3.4); LYMPH% 10.7 % (20.5-51.1); MCH 32.5 PG (27-31); MCHC 33.7 g/dL (33-37); MCV 96.7 FL (81-99); MONO# 0.93 X1000 (0.11-0.59); MONO% 9.7 % (1.7-9.3); MPV 10.2 FL (7.4-10.4); NEUT# 7.33 X1000 (1.4-6.5); NEUT% 76.5 % (42.2-75.2); PLT 110 X1000 (130-400); RBC 4.18 XMIL (4.7-6.1); RDW 12.6 % (11.5-14.5); WBC 9.59 X1000 (4.8-10.8)
[2019-01-28] MEDS: LOPRESSOR PO SCH ×3 (08:44→20:21)
[2019-01-28] MEDS: NICODERM PATCH TD SCH (08:44)
[2019-01-28] MEDS: ASPIRIN EC PO SCH (08:44)
[2019-01-28] MEDS ORDERED: VERSED ONE (09:44)
[2019-01-28] MEDS ORDERED: MORPHINE ONE (09:44)
[2019-01-28] MEDS ORDERED: CLAVE TWINSITE 32 IN 11959 ONE (09:44)
[2019-01-28] MEDS ORDERED: NS 1,000 ML ONE (09:45)
[2019-01-28] MEDS ORDERED: ANESTHESIA PB SET 88 IN 5742 ONE (09:45)
[2019-01-28 09:54] LABS: INR 0.88; PROTIME 12.6 Seconds (11.0-16.0)
--- NOTE | 2019-01-28 11:46 | EKG Report ---
Test Performed on : 01/28/2019 11:39:27 AM Test Reason : post cath Blood Pressure : / mmHG Vent. Rate : 074 BPM Atrial Rate : 074 BPM P-R Int : 152 ms QRS Dur : 080 ms QT Int : 406 ms P-R-T Axes : 059 068 054 degrees QTc Int : 450 ms Normal sinus rhythm. Normal ECG When compared with ECG of 24-JAN-2019 06:49, No significant change was found Confirmed by Rex Muir MD ([id number]) on 01/29/2019 7:19:30 AM
--- NOTE | 2019-01-28 11:48 | PROGRESS NOTE ---
DATE: 01/28/2019 SUBJECTIVE: The patient continues without further chest discomfort. He does relate some back discomfort. OBJECTIVE: Vital Signs: Blood pressure 152/87, heart rate 78, oxygen saturation 100%. Neck: There is no significant jugular venous distention. Chest: Clear to auscultation. Cardiac: Examination reveals a regular rate and rhythm without appreciable murmur or gallop. There is no evidence of peripheral edema. Laboratory Data: Includes white blood cell count of 9.59, hematocrit 40.4, hemoglobin 13.6, platelet count 110,000. Sodium 142, potassium 4.2, chloride 104, carbon dioxide 27, BUN 11, creatinine is 0.9, glucose 99. Coronary angiography performed this morning was noteworthy for a left ventricular ejection fraction of approximately 50%. Left ventricular end-diastolic pressure of 13, left dominant coronary anatomy with very severe coronary atherosclerosis in the ostial and proximal left anterior descending coronary artery. There is probably a 70% ostial LAD stenosis, followed by a segment of calcified atherosclerosis. Just after a medium to large size first diagonal branch, the left anterior descending coronary demonstrates subtotal stenosis. IMPRESSION: 1. Severe atherosclerotic coronary artery disease involving the ostium to proximal left anterior descending as described. Left ventricular ejection fraction of 50%. There is a small area of apical hypokinesis but the majority of the territory of the left anterior descending coronary artery appears viable. Coronary angiogram is reviewed. [*] Cardiology in [place] and percutaneous intervention not felt to be advisable. Cardiovascular surgery consultation is pending. 2. Alcoholism. 3. Mild thrombocytopenia, improving. RECOMMENDATIONS: 1. Continue medical management of patient's coronary atherosclerosis. 2. CV surgery consultation pending regarding possible bypass of severe disease of the left anterior descending coronary artery. cc: River Elliott MD
[2019-01-28] MEDS: FOLIC ACID PO SCH (12:24)
[2019-01-28] MEDS: PROTONIX IV SCH (12:24)
[2019-01-28] MEDS: VITAMIN B-1 PO SCH (12:24)
[2019-01-28] MEDS: THERA M PLUS PO SCH (12:24)
[2019-01-28 17:18] LABS: INR 0.84; PROTIME 12.2 Seconds (11.0-16.0)
[2019-01-28] MEDS: LIPITOR PO SCH ×2 (19:44→20:21)
--- NOTE | 2019-01-28 20:41 | DISCHARGE SUMMARY ---
ADMISSION DATE: 01/23/2019 DISCHARGE DATE: PRINCIPAL DIAGNOSES: 1. Gdy-CO-utejqdzpy myocardial infarction. 2. Status post cardiac catheterization done 01/28/2019, which shows probably 70% ostial left anterior descending artery stenosis followed by segment of calcified atherosclerosis. 3. Alcoholism. 4. Thrombocytopenia, probably secondary to effect of alcohol. 5. Nicotine dependence. 6. Hypertension. 7. Hypokalemia, now resolved. DISCHARGE MEDICATIONS: Include the followin. Metoprolol 25 mg p.o. twice a day. 2. Aspirin 81 mg p.o. daily. 3. Librium 25 every 8 hours as needed. 4. Folic acid 1 mg p.o. daily. 5. Multivitamin 1 p.o. daily. 6. Thiamine 100 mg p.o. daily. 7. Atorvastatin 40 mg p.o. daily. 8. Nicotine patch 14 mg transdermal daily. 9. Lisinopril 20 mg p.o. daily. CONSULTATIONS: During this hospital stay, Dr. River Elliott, Cardiology; Dr. Padilla, Hematology/Oncology. PROCEDURES: 1. Special procedures done during this hospital stay, a CT scan of the head as well as a cervical spine done on 01/24/2019. It showed no cerebral hemorrhage, and no evidence of C-spine fracture. 2. 2D echo done on 01/24/2019 showed estimated ejection fraction which appears to be about 50%, with no obvious regional wall motion abnormalities appreciated. 3. On 01/26/2019, the patient had ultrasound of the spleen with no definite abnormalities. 4. On 01/27/2019, the patient had myocardial perfusion nuclear scan. It showed a small severe defect in the apex of the left ventricle on stress, and resting images to a similar degree, suggesting previous small apical infarct. There is mild to moderate reversibility in the basal to mid anteroseptal region. Inducible myocardial ischemia and distribution of the left anterior descending coronary is suggested. 5. Cardiac catheterization done on 01/28/2019 shows left ventricular ejection fraction approximately 50%, and there is probably a 70% ostial LAD stenosis followed by segment of calcified atherosclerosis. Just after a medium to large size first diagonal branch, the left anterior descending coronary artery demonstrates subtotal stenosis. HOSPITAL COURSE: Mr. Osmar Lopez is a 58-year-old male who was admitted to the hospital because of alcohol withdrawal. The patient was placed on delirium tremens prophylaxis along with thiamine, folic acid and multivitamin. He was noted to have thrombocytopenia, which was thought to be secondary to bone marrow effect of alcohol. Also he was noted to have raised troponin levels and the Cardiology team was called, and the patient had a stress test which was abnormal. He also subsequently had a followup cardiac catheterization, which shows a lesion about 70% involving the LAD. Based on the cardiac catheterization report, Cardiovascular Surgery in [place] was contacted by the Cardiology team, and he will now be transferred over there for evaluation for possible revascularization. cc: Sukumar Schmidt MD
[2019-01-29] MEDS: NICODERM PATCH TD SCH (08:03)
[2019-01-29] MEDS: THERA M PLUS PO SCH (08:03)
[2019-01-29] MEDS: FOLIC ACID PO SCH (08:03)
[2019-01-29] MEDS: VITAMIN B-1 PO SCH (08:03)
[2019-01-29] MEDS: ASPIRIN EC PO SCH (08:04)
[2019-01-29 08:12] VITALS: BP 160/92
[2019-01-29] MEDS: DILAUDID IV PRN (08:33)
[2019-01-29] MEDS: LOPRESSOR PO SCH (08:33)
--- NOTE | 2019-01-29 09:07 | CARDIAC CATH REPORT ---
PROCEDURE NAME: - PROCEDURE PERFORMED: Left heart catheterization with selective coronary angiography. INDICATIONS: Recent non ST-elevation myocardial infarction. ENTRY SITE: Right femoral artery. CATHETERS USED: A 5-[place] JL-4, 3DRC, and angled pigtail. TECHNIQUE: After intravenous sedation with Versed and morphine, local anesthesia with lidocaine was applied over the right femoral artery. Arterial access was established with placement of a 5- [place] sheath in the right femoral artery using modified Seldinger technique. Due to some oozing around the sheath, the 5-[place] sheath was sized up to a 6-[place] sheath. Selective coronary angiography was subsequently performed, followed by left heart catheterization and left ventriculography. Upon completion of the procedure, arterial sheath was removed from right femoral artery, and hemostasis facilitated with manual pressure. The patient tolerated the procedure without apparent complications. FINDINGS: Hemodynamics: Aortic pressure 173/82 with a mean of 120. Left ventricular pressure 186 over EDP of 13. Comments on Hemodynamics: There is no significant gradient across the aortic valve demonstrated on pullback of the left ventricle. ANGIOGRAPHY: 1. Left ventriculogram. The left ventricle is of normal size with estimated left ventricular ejection fraction of approximately 55%. There is mild hypokinesis of the left ventricular apex on SPEARS projection. There is no significant mitral regurgitation. 2. Left main coronary. The left main coronary artery is free of significant coronary stenosis. 3. Left anterior descending coronary. The left anterior descending coronary artery demonstrates a segment of severe atherosclerosis from its ostium to after the proximal third of the vessel. At the [*]of the left anterior descending coronary artery is a 70% stenosis, followed by a segment of atherosclerotic disease. Just after origin of [id number] first diagonal branch is a subtotal stenosis, essentially after the proximal third of the left anterior descending coronary artery. The remainder of the left anterior descending coronary artery and its branches are free of significant coronary stenosis. The distal left anterior descending coronary artery appears to be relatively underfilled. 4. Left circumflex coronary. The left circumflex coronary artery gives rise to a small first obtuse marginal. The second obtuse marginal arises from midvessel and appears to demonstrate a moderate (50%) ostial narrowing. 5. Right coronary. The left circumflex coronary artery is a dominant vessel. A small first obtuse marginal arises from the proximal left circumflex coronary artery and is free of significant coronary stenosis. A gjnhri-[id number] second obtuse marginal arises from mid left circumflex coronary and demonstrates a moderate (50%) ostial stenosis. The remainder of the left circumflex coronary artery and its branches are free of significant coronary stenosis. 6. Right coronary. The right coronary artery is small and nondominant and is free of significant coronary stenosis. CONCLUSIONS: 1. Low-normal left ventricular ejection fraction with mild apical hypokinesis seen on SPEARS projection. 2. Left dominant coronary anatomy with severe segment of atherosclerosis in the ostium to proximal left anterior descending coronary artery as described, and a moderate ostial stenosis and infbqj-ab-[id number] second obtuse marginal. RECOMMENDATIONS: Cardiothoracic Surgery consultation regarding possible pursuit of coronary artery bypass grafting. cc: River Elliott MD
== END 2019-01-29 09:27 | disposition short-term general hospital (02) | DRG 896 ==
LOC: ED 19:18 → EDIPHOLD 01-23 12:45 → SUATTDRO 01-23 12:45 → ICU 01-23 17:25 → 4N 01-26 14:06 → 3S 01-28 09:40
PROVIDERS: ATTEND Internal Medicine
CPT/HCPCS: 51701; 51798; 70450; 71010; 71045; 72125; 76705; 78452; 80048; 80053; 80061; 80101; 80196; 80301; 80307; 80320; 80324; 80329; 80345; 80346; 80353; 80358; 80361; 80365; 81001; 82003; 82009; 82055; 82550; 82553; 82565; 82607; 82746; 82805; 82948; 83036; 83605; 83690; 83735; 83992; 84100; 84439; 84484; 85025; 85027; 85610; 85730; 86022; 87275; 87276; 87804; 93005; 93010; 93017; 93306; 93458; 94761; 96361; 96365; 96366; 96375; 96376; 97116; 97162; 99285; A9270; A9500; C9113; G0431; G0434; G0479; G0480; G6038; G6039; G6040; J0280; J0820; J1170; J1630; J1644; J1650; J2060; J2250; J2270; J2785; J3411; J3475; J7030; P9612; Q9967; S0164; XXXXX

== ENCOUNTER 2019-05-13 11:03 | Inpatient (IN) ==
[2019-05-13] MEDS ORDERED: ASPIRIN PO ONE (11:29)
[2019-05-13] MEDS: NITROGLYCERIN SL PRN ×2 (11:52→16:55)
[2019-05-13 11:53] LABS: BASO# 0.03 X1000 (0.0-0.2); BASO% 0.4 % (0.0-0.8); EOS# 0.07 X1000 (0.0-0.7); HEMATOCRIT 44.4 % (42.0-52.0); HEMOGLOBIN 15.3 g/dL (14.0-18.0); LYMPH% 39.6 % (20.5-51.1); MCH 30.3 PG (27-31); MCHC 34.5 g/dL (33-37); MCV 87.9 FL (81-99); MONO# 0.42 X1000 (0.11-0.59); MONO% 5.7 % (1.7-9.3); MPV 9.5 FL (7.4-10.4); NEUT% 53.3 % (42.2-75.2); PLT 223 X1000 (130-400); RBC 5.05 XMIL (4.7-6.1); RDW 14.1 % (11.5-14.5); WBC 7.32 X1000 (4.8-10.8)
[2019-05-13 12:02] LABS: INR 0.85; PROTIME 12.3 Seconds (11.0-16.0)
[2019-05-13 12:03] LABS: PTT 24.8 Seconds (22.3-41.8)
--- NOTE | 2019-05-13 12:04 | Diag Imaging Result Doc PS360 ---
CHEST-PORTABLE - 05/13/2019 INDICATION: chest pain COMPARISON: 05/10/2019 FINDINGS: Stable CABG changes. Heart size and pulmonary vascularity is normal. No infiltrates or edema. No pneumothorax or pleural effusion. IMPRESSION: Negative exam. Electronically signed by Nolan Altman 05/13/2019 12:02 PM
--- NOTE | 2019-05-13 12:08 | EKG Report ---
Test Performed on : 05/13/2019 11:20:07 AM Test Reason : cp Blood Pressure : / mmHG Vent. Rate : 102 BPM Atrial Rate : 102 BPM P-R Int : 150 ms QRS Dur : 072 ms QT Int : 360 ms P-R-T Axes : 064 061 081 degrees QTc Int : 469 ms Sinus tachycardia. Possible Left atrial enlargement Nonspecific ST abnormality Abnormal ECG When compared with ECG of 10-MAY-2019 17:31, (Unconfirmed) No significant change was found Unconfirmed Result
[2019-05-13] MEDS ORDERED: ULTRAM PO ONE (12:38)
[2019-05-13 12:39] LABS: AGAP 15; ALB/GLOB RATIO 1.6; ALBUMIN 4.1 g/dL (3.5-5.0); ALKALINE PHOSPHATASE 84 U/L (32-122); BUN 12 mg/dL (8-22); CALCIUM 8.4 mg/dL (8.8-10.2); CHLORIDE 105 mmol/L (98-107); CK PROFILE 81 U/L (24-204); COSMO 285; ESTIMATED GFR > 60; GLUCOSE 95 mg/dL (70-104); GOT 19 U/L (10-34); GPT 14 U/L (10-44); POTASSIUM 4.1 mmol/L (3.5-5.1); SODIUM 143 mmol/L (136-145); TCO2 23 mmol/L (25-35); TOTAL BILIRUBIN 0.25 mg/dL (0.20-1.00); TOTAL PROTEIN 6.7 g/dL (6.3-8.3)
[2019-05-13] MEDS ORDERED: MORPHINE IV ONE (13:54)
[2019-05-13] MEDS ORDERED: ZOFRAN IV ONE (13:54)
[2019-05-13] MEDS ORDERED: DILAUDID IV ONE (15:50)
[2019-05-13] MEDS ORDERED: LIDODERM TOP SCH (16:15)
[2019-05-13] MEDS: NEURONTIN PO SCH (16:54)
--- NOTE | 2019-05-13 17:28 | PROVIDER DOCUMENTATION ---
This chart was entered by Lizett Hightower Scribe, acting as scribe for Denice Mendenhall MD. HPI-Chest Pain - General Chief Complaint: Chest Pain Stated Complaint: CHEST HURTS Time Seen by Provider: 05/13/19 12:17 Source: patient Allergies/Adverse Reactions: Patient Allergies Allergy/AdvReac Type Severity Reaction Status Date / Time Corticosteroids Allergy ITCHING Verified 05/13/19 15:15 (Glucocorticoids) prednisone Allergy SHORTNESS Verified 05/13/19 15:15 OF BREATH Home Medications: Home Medication List Medication Instructions Recorded Confirmed Last Taken Type ATORVAstatin [Lipitor] 40 mg PO QHS tablet 01/28/19 05/13/19 Unknown Rx Aspirin [Aspirin EC] 1 tab PO DAILY 05/10/19 05/13/19 05/10/19 History Clonidine [Catapres] 0.1 mg PO BID 10 Days #30 tab 05/10/19 05/13/19 Unknown Rx Losartan [Cozaar] 1 tab PO BID 05/10/19 05/13/19 Unknown History Methocarbamol 1 tab PO Q6H PRN 05/10/19 05/13/19 Unknown History Metoprolol [Lopressor] 50 mg PO Q12HR 05/10/19 05/13/19 Unknown History Nitroglycerin 1 tab PO DIRECTED 05/10/19 05/13/19 Unknown History - History of Present Illness-CP Nature of Presenting Problem: Patient is a 58 year old male who presents with chest pain that has been present for 3 months but has worsened within the last 3 days. Patient states having a bypass [address] Zurita in [place] and pain has been constant since surgery. Reports being seen in ED 3 days ago for HTN. States being seen by PCP recently and was given Tramadol and the medication improved the pain. Does not report shortness of breath and vomiting. Patient states having a headache since this morning. Location: reports: central Chest Pain Radiation: reports: no radiation Quality of Pain: reports: aching Severity in ED: mild Onset/Duration: other (3 months) Timing: still present, constant, getting worse Context/Activities at Onset: reports: light activity Associated Symptoms: reports: headache Similar Symptoms Previously?: Yes Recently Seen Here or By Another Healthcare Provider: Yes Review of Systems - Adult - REVIEW OF SYSTEMS - ADULT Constitutional: reports: no symptoms reported. denies: chills, fever, fatique Eyes: reports: no symptoms reported Ears, Nose, Mouth & Throat: reports: no symptoms reported Cardiovascular: reports: see HPI, chest pain. denies: heart murmur, irregular heart rate Respiratory: reports: no symptoms reported Gastrointestinal: reports: no symptoms reported. denies: abdominal pain, diarrhea, nausea, vomiting Genitourinary: reports: no symptoms reported Musculoskeletal: reports: no symptoms reported Integumentary: reports: no symptoms reported Neurological: reports: see HPI, headache/migraines (HARRY). denies: dizziness/vertigo, numbness, seizure Psychiatric: reports: no symptoms reported Endocrine: reports: no symptoms reported Hematologic/Lymphatic: reports: no symptoms reported Allergic/Immunologic: reports: no symptoms reported All Other Systems: Reviewed and Negative Past History - Adult - PAST MEDICAL HISTORY-ADULT Review of Records: reports: Old Records Reviewed, Nursing Assessment Review, Medications Reviewed, Social history reviewed & non-contributory. Major Childhood Illnesses: reports: denies history Cardiovascular: reports: HTN Respiratory: reports: denies history Gastrointestinal: reports: other (herina) Obstetrical/Gynecological: reports: denies history Genitourinary: reports: kidney stones Musculoskeletal: reports: chronic pain, other (facial fractures ) Neurological: reports: denies history Psychiatric: reports: denies history Endocrine/Immune: reports: denies history 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) - PRIOR SURGERIES/PROCEDURES Surgical/Procedure History: reports: reviewed, not pertinent, CABG, hernia repair, other (face reconstruction after a line drive to his face) - IMMUNIZATION STATUS Childhood Immunizations: See Nurse Assessment Flu Vaccine: See Nurse Assessment - FAMILY HISTORY Family History: reviewed, not pertinent - SOCIAL HISTORY Smoking: cigarettes, greater than 1 pack/day Provider spent 3-5 mins advising pt. on dangers of tobacco.: Discussed manners to quit use, and f/u contacts for add'l counseling. Substance Use: alcohol Alcohol Use Frequency: occasionally Living Situation: alone Physical Exam-General - PHYSICAL EXAM-ADULT Initial Vital Signs Reviewed: Yes - CONSTITUTIONAL General Appearance: alert, no apparent distress. negative: lethargic, slow to respond - HEAD, EARS, NOSE, MOUTH & THROAT HENMT: normocephalic/atraumatic, moist mucous membranes. negative: angioedema, hearing deficit - RESPIRATORY Respiratory: lungs clear, normal breath sounds, other (chest wall tenderness). negative: chest non-tender, crackles, rhonchi, stridor - CARDIOVASCULAR Cardiovascular: normal peripheral pulses, regular rate, rhythm. negative: tachycardia, systolic murmur - GASTROINTESTINAL (ABDOMEN) Abdominal Exam: normal bowel sounds, non tender, soft. negative: guarding, rebound - MUSCULOSKELETAL Extremity: non-tender, normal inspection. negative: deformity, erythema - SKIN Integumentary: normal color, normal turgor, warm/dry. negative: cyanosis, ecchymosis, erythema, jaundice - NEUROLOGIC Neurologic: grossly normal. negative: aphasia, facial droop - PSYCHIATRIC Psych/Mental Status: normal mood/affect, oriented x 3. negative: anxious Progress - PLAN OF CARE/RESULTS Progress/Plan/Lab Results: Vital Signs - 8 hr 05/13/19 11:08 05/13/19 11:16 05/13/19 11:17 Temperature 97.6 F Pulse Rate 114 H 108 H Respiratory Rate 20 23 Blood Pressure 149/91 172/113 O2 Sat by Pulse Oximetry 99 98 99 05/13/19 11:30 05/13/19 11:32 05/13/19 12:00 Temperature Pulse Rate 104 H 101 H 105 H Respiratory Rate 19 20 18 Blood Pressure 163/102 O2 Sat by Pulse Oximetry 98 97 95 05/13/19 12:01 05/13/19 12:31 05/13/19 13:01 Temperature Pulse Rate 118 H 93 H 88 Respiratory Rate 21 13 13 Blood Pressure 133/85 138/91 144/93 O2 Sat by Pulse Oximetry 93 L 97 96 05/13/19 13:31 05/13/19 14:01 05/13/19 14:31 Temperature Pulse Rate 82 89 84 Respiratory Rate 20 15 16 Blood Pressure 133/92 157/90 159/97 O2 Sat by Pulse Oximetry 95 97 97 Laboratory Results - last 24 hr 05/13/19 05/13/19 05/13/19 11:37 11:37 11:37 WBC 7.32 RBC 5.05 Hgb 15.3 Hct 44.4 MCV 87.9 MCH 30.3 MCHC 34.5 RDW Std Deviation 14.1 Plt Count 223 MPV 9.5 Immature Gran % (Auto) 0.0 Neut % (Auto) 53.3 Lymph % (Auto) 39.6 [place] % (Auto) 5.7 Eos % (Auto) 1.0 Baso % (Auto) 0.4 Immature Gran # (Auto) 0.00 Neut # (Auto) 3.90 Lymph # (Auto) 2.90 [place] # (Auto) 0.42 Eos # (Auto) 0.07 Baso # (Auto) 0.03 PT INR PTT (Actin FS) Sodium 143 Potassium 4.1 Chloride 105 Carbon Dioxide 23 L Anion Gap 15 BUN 12 Creatinine 1.0 Estimated GFR/1.73 m2 > 60 BUN/Creatinine Ratio 12 Glucose 95 Calculated Osmolality 285 Calcium 8.4 L Total Bilirubin 0.25 AST 19 ALT 14 Alkaline Phosphatase 84 Creatine Kinase 81 Troponin T Dxa-N-Sjmocujsbib Pept 51 Total Protein 6.7 Albumin 4.1 Globulin 2.6 Albumin/Globulin Ratio 1.6 05/13/19 05/13/19 05/13/19 11:37 11:37 15:35 WBC RBC Hgb Hct MCV MCH MCHC RDW Std Deviation Plt Count MPV Immature Gran % (Auto) Neut % (Auto) Lymph % (Auto) [place] % (Auto) Eos % (Auto) Baso % (Auto) Immature Gran # (Auto) Neut # (Auto) Lymph # (Auto) [place] # (Auto) Eos # (Auto) Baso # (Auto) PT 12.3 INR 0.85 PTT (Actin FS) 24.8 Sodium Potassium Chloride Carbon Dioxide Anion Gap BUN Creatinine Estimated GFR/1.73 m2 BUN/Creatinine Ratio Glucose Calculated Osmolality Calcium Total Bilirubin AST ALT Alkaline Phosphatase Creatine Kinase 74 Troponin T < 0.010 Bil-G-Amzknliydvn Pept Total Protein Albumin Globulin Albumin/Globulin Ratio 05/13/19 15:35 WBC RBC Hgb Hct MCV MCH MCHC RDW Std Deviation Plt Count MPV Immature Gran % (Auto) Neut % (Auto) Lymph % (Auto) [place] % (Auto) Eos % (Auto) Baso % (Auto) Immature Gran # (Auto) Neut # (Auto) Lymph # (Auto) [place] # (Auto) Eos # (Auto) Baso # (Auto) PT INR PTT (Actin FS) Sodium Potassium Chloride Carbon Dioxide Anion Gap BUN Creatinine Estimated GFR/1.73 m2 BUN/Creatinine Ratio Glucose Calculated Osmolality Calcium Total Bilirubin AST ALT Alkaline Phosphatase Creatine Kinase Troponin T < 0.010 Tcd-D-Ircdrzlsdva Pept Total Protein Albumin Globulin Albumin/Globulin Ratio Orders Category Date Time Status Admit - [facility] Routine AdmDCTranf 05/13/19 15:53 Active Activity - Up with Assistance ORDERED Care 05/13/19 15:53 Active Cardiac Monitoring DIRECTED Care 05/13/19 11:29 Active Intake and Output-Strict ORDERED Care 05/13/19 15:53 Active Nursing- MD Consult Request ROUTINE Care 05/13/19 15:44 Active Oxygen Therapy- ED Nursing DIRECTED Care 05/13/19 11:29 Active Saline Loc NOW Care 05/13/19 11:29 Active Vital Signs Order Q 8-HR ASSESS Care 05/13/19 15:53 Active Z-Document. for Tele Applied ORDERED Care 05/13/19 15:54 Active Physician/Provider Consults Routine Cons 05/13/19 15:44 Ordered Heart Healthy Diet Diet 05/13/19 15:54 Active CHEST-PORTABLE [RAD] Stat Exams 05/13/19 11:48 Completed CBC WITH ELECTRONIC DIFF [HEME] Stat Lab 05/13/19 11:37 Completed CK PROFILE [SP CHEM] Stat Lab 05/13/19 11:37 Completed CK PROFILE [SP CHEM] Stat Lab 05/13/19 15:35 Completed COMPREHENSIVE METABOLIC PANEL [CHEM] Stat Lab 05/13/19 11:37 Completed PRO B-NATRIURETIC PEPTIDE Stat Lab 05/13/19 11:37 Completed PROTIME WITH INR [COAG] Stat Lab 05/13/19 11:37 Completed PTT [COAG] Stat Lab 05/13/19 11:37 Completed TROPONIN T Stat Lab 05/13/19 11:37 Completed TROPONIN T Stat Lab 05/13/19 15:35 Completed ATORVAstatin [Lipitor] Med 05/13/19 21:00 Active 40 mg PO QHS Aspirin Med 05/13/19 11:29 Discontinued 325 mg PO NOW ONE Aspirin EC Med 05/14/19 09:00 Active 325 mg PO DAILY Clonidine [Catapres] Med 05/13/19 21:00 Active 0.1 mg PO BID Gabapentin [Neurontin] Med 05/13/19 17:00 Active 100 mg PO TID Hydromorphone [Dilaudid] Med 05/13/19 15:50 Discontinued 0.5 mg IV NOW ONE Lidocaine 5% Patch [Lidoderm] Med 05/13/19 16:15 Active 1 each TOP DAILY Losartan [Cozaar] Med 05/13/19 21:00 Active 25 mg PO BID Methocarbamol [Robaxin] Med 05/13/19 15:55 Active 500 mg PO Q6H PRN PRN Metoprolol [Lopressor] Med 05/13/19 21:00 Active 50 mg PO Q12HR Morphine Med 05/13/19 13:54 Discontinued 4 mg IV NOW ONE Nitroglycerin Sl [Nitroglycerin] Med 05/13/19 11:29 Active 0.4 mg SL Q5M PRN PRN Ondansetron [Zofran] Med 05/13/19 13:54 Discontinued 4 mg IV NOW ONE Tramadol [Ultram] Med 05/13/19 12:38 Discontinued 50 mg PO NOW ONE CP/SOB/Palp >45 yrs of Age Stat Oth 05/13/19 11:29 Ordered Telemetry [OM.EQ] Routine Oth 05/13/19 15:53 Active EKG [EKG] Stat Ther 05/13/19 11:29 Draft Transfer/Admit Order [TRANSFER] Routine Transfer 05/13/19 15:56 Completed Result Diagrams: 05/13/19 11:37 05/13/19 11:37 - EKG 1 Time of EKG reading by physician:: 11:20 EKG Read and Signed by:: Denice Mendenhall EKG Interpretation (*Must complete 3 of following elements*): Abnormal Rate: 102 Rhythm: sinus tachycardia [place]: normal CT Interval: normal Comments: possible left atrial enlargement; nonspecific ST abnormality. - XRAY 1 XRAY Study: Chest Impression: See EMR Report ( CHEST-PORTABLE - 05/13/2019 INDICATION: chest pain COMPARISON: 05/10/2019 FINDINGS: Stable CABG changes. Heart size and pulmonary vascularity is normal. No infiltrates or edema. No pneumothorax or pleural effusion. IMPRESSION: Negative exam. Electronically signed by Nolan Altman 05/13/2019 12:02 PM 05/13/19 1202 Interpreting Physician: Nolan Altman MD Dictated Date/Time: 05/13/19 1202 cc: Denice Mendenhall MD; None,PCP) - CONSULTS/PCP/HOSPITALIST Notification #1 *Consult/PCP/Hospitalist*: MURTAZA Higgins for Hospitalist Time Discussed: 14:41 Reason/Comments: Dr. Mendenhall consulted with Gisela about patient. Consult Disposition: Will see in ED, Admit Departure - Departure Date of Disposition Decision: 05/13/19 Time of Disposition Decision: 14:42 DIAGNOSIS: Chest pain Disposition: ADMITTED INPATIENT 09 Certified Medical Emergency: Emergent Condition: Stable - Critical Care Note This patient required my direct & personal management of CC.: No Attestation - Physician/ ETELVINA Attestation The physician spent face to face time with patient:: Yes Advanced Practice Provider documentation review:: Supervising physician onsite and consulted in the evaluation and care of this patient. The physician did have a face to face encounter with the patient. This chart was documented by the indicated scribe, (Lizett Hightower Scribe) and accurately reflects the services I performed and decisions made by me, Denice Mendenhall MD, as attested by the provider's signature.
[2019-05-13] MEDS ORDERED: PROTONIX PO ONE (18:11)
[2019-05-13] MEDS: MORPHINE IV PRN ×2 (18:36→21:55)
--- NOTE | 2019-05-13 18:51 | HISTORY AND PHYSICAL ---
CHIEF COMPLAINT: Left chest pain. HISTORY OF PRESENT ILLNESS: This is a 58-year-old male with a history of CAD, status post coronary artery bypass graft in January 2019. He presents to the emergency room complaining of pain to his left chest around his clavicular area. It is about a 4 inch by 4 inch square, just to the left of his sternum, that he states has hurt since the day after bypass surgery. He describes this as nails stinging his skin or electricity shocking his skin. The pain is reproducible with palpation or rubbing of this area. He denied any substernal pain, any shortness of breath. He does state that he told his heart surgeon about this on his last visit. He has been seen by his primary care physician for this, and he was in the emergency room 3 days prior with this pain. He did state that he was given tramadol by his primary care physician. It did improve the pain somewhat. PAST MEDICAL HISTORY: 1. Hypertension. 2. Coronary artery disease, status post coronary bypass graft. 3. Nicotine dependence. 4. Alcohol dependence. 5. Possible atrial fibrillation, which is in his past records. PAST SURGICAL HISTORY: 1. Facial reconstruction. 2. Hernia repair. 3. Coronary artery bypass graft. SOCIAL HISTORY: He smokes a half pack a day. He does drink vodka. He denies illicit drug use. ALLERGIES: Prednisone and glucocorticoids. HOME MEDICATIONS: A list will be obtained by the nursing staff and once verified, will review and restart as appropriate. REVIEW OF SYSTEMS: Discussed with patient with pertinent positives as stated in the HPI. He denied any syncope, dizziness, any palpitations, any fevers or chills, any shortness of breath, cough, nausea, vomiting, diarrhea, constipation, black or bloody vomitus or stools, hematuria, dysuria, frequency, urgency. PHYSICAL EXAMINATION: GENERAL: This is a 58-year-old male who is sitting up in the bed in no distress. VITAL SIGNS: Blood pressure is 172/90 with a heart rate of 81, respirations are 18, temperature is 97.7 degrees oral, with room air saturations 99%. CARDIOVASCULAR: Regular rate and rhythm. S1, S2 appreciated. EXTREMITIES: He has no lower extremity edema. Calves are nontender bilateral with peripheral pulses palpable x4 extremities. PULMONARY: Breath sounds are clear with no increased work of breathing noted. Chest rises and falls symmetrically with respiration. Chest wall is tender to palpation at the left upper chest. GASTROINTESTINAL: Soft, nontender, nondistended. Bowel sounds in all 4 quadrants. GENITOURINARY: He has no CVA or suprapubic tenderness. NEUROLOGIC: He is alert and oriented x3. SKIN: Warm and dry. Area to his left upper chest is noted to be red. LABS: WBC is 7.3 with hemoglobin 15.3, hematocrit 44, and platelets of 223,000. Sodium 143, potassium 4.1, BUN 12, creatinine 1 with a glucose of 95. Troponins are negative on multiple occasions. CPK is 81 and 74. Chest x-ray was a negative exam. Stable coronary artery bypass graft changes. Heart size and pulmonary vascularity are normal. No infiltrates or edema. ASSESSMENT AND PLAN: 1. Chest wall pain. The patient has no signs of shingles. No blisters. Skin is red. The patient states that this area has been red since the day after his bypass surgery. He denies applying any creams or [id number]-rcq-rwimfrv medications. Will start on lidocaine patch and will monitor. We will start Neurontin 100 mg t.i.d. 2. Coronary artery disease, status post coronary bypass graft in January 2019. We will identify any home medications and follow. Of note, his incision is healed and clear. There is no sternal click felt on palpation to the chest. 3. Hypertension. We will continue his home medications as appropriate. 4. Hyperlipidemia. We will continue his Lipitor. 5. Further treatments pending hospital course and discussion with Dr. Preciado. Dictated by MURTAZA Becerra for Juana Preciado MD cc: MURTAZA Becerra MD
--- NOTE | 2019-05-13 19:49 | CONSULTATION ---
DATE OF CONSULTATION: 05/13/2019 IMPRESSION: 1. Noncardiac chest pain, probably inflammatory, related to previous cardiac surgery. 2. Atherosclerotic coronary disease. Patient is status post coronary artery bypass grafting, January 2019, for severe segmental proximal left anterior descending stenosis following small non-ST elevation myocardial infarction. 3. Previous significant regular alcohol use. Patient relates abstaining, but this is called into question by faint smell of alcohol on his breath. 4. Hyperlipidemia. 5. Hypertension. Blood pressure elevated. RECOMMENDATIONS: 1. Check alcohol level. 2. Favor use of nonsteroidal anti-inflammatories while at the same time providing proton pump inhibitor for gastrointestinal protection. 3. Increase losartan and consider switching metoprolol to Coreg if blood pressure remains elevated. HISTORY: This 58-year-old white male, with past history of fairly recent coronary artery bypass surgery in January of this year after he presented with small non-ST elevation myocardial infarction in the setting of alcohol withdrawal syndrome, was admitted to the emergency room with atypical chest pain. He relates that he has had upper sternal chest discomfort ever since his cardiopulmonary bypass procedure. Discomfort has been pretty much constant, but may be worsened by such activities as trying to start a weedeater with a pull cord. Discomfort is not pleuritic nor positional. Discomfort seems worse over the past week. He went to the emergency room 3 days ago for chest discomfort and was found to have elevated blood pressure. He was started on clonidine in addition to his usual cardiovascular medications. His chest discomfort has persisted and he came back to the emergency room today and was admitted. He denies any further use of alcohol since his cardiac surgery earlier this year. PAST MEDICAL HISTORY: 1. Atherosclerotic coronary disease as outlined above. 2. Hypertension. 3. Hyperlipidemia. 4. Previous significant heavy alcohol use./alcohol dependency. 5. Gastroesophageal reflux disease. PAST SURGICAL HISTORY: Includes: 1. Coronary artery bypass surgery, 02/03/2019. 2. Facial reconstruction surgery, 1984. 3. Hernia repair. ALLERGIES: He is allergic or intolerant to corticosteroids and prednisone. MEDICATIONS PRIOR TO ADMISSION: As listed. SOCIAL HISTORY: He resides in a small guest house behind his mother's home. He has history of significant heavy alcohol use in the past, but reports no longer drinking alcohol. 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 FAMILY HISTORY: Positive for coronary disease. REVIEW OF SYSTEMS: Pulmonary: Negative. Gastrointestinal: Negative. Constitutional: Negative. Remainder of review of systems negative/noncontributory with 14 total systems reviewed. PHYSICAL EXAMINATION: General: This is a middle-aged white male in no distress, who appears somewhat anxious. There is faint aroma on his breath which is possibly alcohol. Vital Signs: Blood pressure 172/93, heart rate 112, oxygen saturation 99% on room air. HEENT: Extraocular movements intact. Mucous membranes moist. Neck: Supple without jugular venous distention. No carotid bruits. Chest: Clear to auscultation. There is some significant tenderness to palpation in the upper sternal area. Cardiac: Regular rate and rhythm without appreciable murmur or gallop. Abdomen: Soft. Bowel sounds are normal. Extremities: Without edema. Neurologic: Alert and fully oriented. Speech is fluent. Moves all 4 extremities equally well. Skin: Warm, dry. Psychiatric: Reveals mood to be appropriate. PERTINENT DATA: Twelve lead EKG demonstrates sinus tachycardia. LABORATORY DATA: Includes a white blood cell count of 7.32, hematocrit 44.4, hemoglobin 15.3, platelet count 223,000. Sodium 142, potassium 4.1, chloride 105, carbon dioxide 23, BUN 12, creatinine 1.0, glucose 95. Troponin T less than 0.01. Followup troponin T less than 0.01. AST 19, ALT 14. Chest x-ray shows evidence of previous coronary artery bypass surgery, but no acute abnormality. cc: River Elliott MD
[2019-05-13] MEDS: LOPRESSOR PO SCH (21:10)
[2019-05-13] MEDS: COZAAR PO SCH (21:10)
[2019-05-13] MEDS: ZOFRAN IV PRN (21:10)
[2019-05-13] MEDS: LIPITOR PO SCH (21:11)
[2019-05-13] MEDS: CATAPRES PO SCH (21:11)
[2019-05-13] MEDS: MOTRIN PO SCH (21:27)
[2019-05-14] MEDS: MORPHINE IV PRN ×7 (00:52→22:56)
[2019-05-14] MEDS: ROBAXIN PO PRN ×2 (01:37→19:29)
[2019-05-14] MEDS: ZOFRAN IV PRN ×5 (02:53→22:56)
[2019-05-14] MEDS: MOTRIN PO SCH ×3 (04:47→19:29)
[2019-05-14 07:04] LABS: AGAP 11; BUN 19 mg/dL (8-22); CALCIUM 8.2 mg/dL (8.8-10.2); CHLORIDE 102 mmol/L (98-107); COSMO 279; ESTIMATED GFR > 60; GLUCOSE 110 mg/dL (70-104); POTASSIUM 3.9 mmol/L (3.5-5.1); SODIUM 138 mmol/L (136-145); TCO2 25 mmol/L (25-35)
[2019-05-14 07:08] LABS: HEMATOCRIT 40.3 % (42.0-52.0); HEMOGLOBIN 13.7 g/dL (14.0-18.0); MCH 30.6 PG (27-31); RBC 4.48 XMIL (4.7-6.1); WBC 7.45 X1000 (4.8-10.8)
[2019-05-14 07:09] LABS: MPV 9.4 FL (7.4-10.4)
--- NOTE | 2019-05-14 08:06 | Diag Imaging Result Doc PS360 ---
CT THORAX W/O CONTRAST - 05/14/2019 INDICATION: persistent chest pain/dyspnea COMPARISON: Chest x-ray 05/13/2019 FINDINGS: There are CABG changes. There are intact median sternotomy wires. The median sternotomy defect remains visible and not completely healed. Heart size is normal with no pericardial effusion. No adenopathy. There is advanced COPD. There is some mild linear scarring in the lung bases. No infiltrates or edema. There is a tiny 5 mm subpleural nodule in the left upper lobe. IMPRESSION: Severe COPD. Tiny nonspecific left upper lobe pulmonary nodule. Recommend a follow-up chest CT in one year. This exam was performed using automated exposure control, adjustment of mA or kV according to patient size, and/or use of iterative reconstruction technique Electronically signed by Nolan Altman 05/14/2019 8:04 AM
[2019-05-14] MEDS ORDERED: ASPIRIN EC PO SCH (09:00)
[2019-05-14] MEDS: COZAAR PO SCH ×2 (09:23→19:28)
[2019-05-14] MEDS: CATAPRES PO SCH ×2 (09:23→19:28)
[2019-05-14] MEDS: LOPRESSOR PO SCH ×2 (09:23→19:29)
[2019-05-14] MEDS: NEURONTIN PO SCH ×3 (09:23→18:00)
[2019-05-14] MEDS: ASPIRIN PO SCH (09:23)
[2019-05-14] MEDS: DUONEB (A & A) INH SCH ×4 (11:32→23:20)
[2019-05-14 13:33] LABS: ALLEN TEST NO; BE 0.7 mmoll (-3.0-3.0); BLOOD TYPE ARTERIAL; HCO3-(ACT) 25.4 mmoll (20.0-26.0); METHB 0.6 % (0.0-1.5); O2(CT) 19.1 mL/dL (15.0-23.0); O2HB 95.5 % (95.0-99.0); PCO2(98.6) 40 mmHg (35-45); PO2(98.6) 82 mmHg (60-100); SAMPLE BLOOD; SAO2 97.6 % (95.0-100.0); THB 14.2 g/dL (11.5-17.4); pH(98.6) 7.41 (7.35-7.45)
[2019-05-14 13:35] LABS: MODALITY ROOM AIR
[2019-05-14] MEDS ORDERED: LIDODERM TOP SCH (18:00)
--- NOTE | 2019-05-14 19:01 | PROGRESS NOTE ---
DATE: 05/14/2019 SUBJECTIVE: The patient continues to complain of reproducible chest pain. He denies having any shortness of breath. OBJECTIVE: Vital Signs: Temperature 98.1 degrees, blood pressure 135/70, heart rate 66, respirations 18, O2 saturation 98% on room air. General: This is a chronically ill-appearing elderly male sitting at the edge of the bed in no acute distress. Heart: S1, S2 normal. Regular rate and rhythm. Lungs: Equal air entry bilaterally. No crackles. No rales. Abdomen: Positive bowel sounds. Soft, nontender, nondistended. Extremities: No edema, no cyanosis. Neurologic: The patient is alert and oriented x3. LABORATORY DATA: Reviewed. ASSESSMENT AND PLAN: 1. Reproducible chest pain. The patient is currently on pain medications and he states that his pain is about the same. The patient has been advised to follow up with his cardiovascular surgeon upon discharge from the hospital. We will also give the patient the name and phone number of the brush painter to help with pain control. 2. Chronic obstructive pulmonary disease. Aware. 3. Coronary artery disease, status post coronary artery bypass graft. Continue on the current cardiac medications. 4. Alcohol abuse. The patient has been counseled about cessation. 5. Deep vein thrombosis prophylaxis. We will start the patient on Lovenox. cc: Juana Preciado MD
[2019-05-14] MEDS: LIPITOR PO SCH (19:28)
[2019-05-14] MEDS: ATIVAN IV PRN ×2 (19:49→23:54)
[2019-05-14] MEDS ORDERED: LOVENOX SUBQ SCH (20:00)
[2019-05-15] MEDS: LOPRESSOR PO SCH ×2 (00:47→09:42)
[2019-05-15] MEDS: MOTRIN PO SCH ×2 (00:47→06:04)
[2019-05-15] MEDS: CATAPRES PO SCH ×2 (00:47→09:42)
[2019-05-15] MEDS: COZAAR PO SCH ×2 (01:19→09:42)
[2019-05-15] MEDS: DUONEB (A & A) INH SCH ×3 (01:20→07:52)
[2019-05-15] MEDS: LIPITOR PO SCH (01:59)
[2019-05-15] MEDS: ZOFRAN IV PRN ×2 (03:34→07:35)
[2019-05-15] MEDS: MORPHINE IV PRN ×3 (03:34→09:42)
[2019-05-15] MEDS ORDERED: PERCOCET-5 PO PRN (05:56)
--- NOTE | 2019-05-15 07:16 | CONSULTATION ---
DATE OF CONSULTATION: 05/14/2019 REQUESTING PROVIDER: Dr. Juana Preciado. REASON FOR CONSULTATION: Pulmonary nodule. HISTORY OF PRESENT ILLNESS: This is a 58-year-old male with a medical history of hypertension, coronary artery disease, nicotine dependence, alcohol dependence, and possible atrial fibrillation. He presented to the ER yesterday with worsening chest pain for 4 to 5 days. He apparently had a bypass on 02/03/[address] Zurita in [place], and has been having constant severe sharp pain on the mid upper chest since the surgery. Initial workup in the ER was nonsignificant. He did have a high ethyl alcohol up to 134. He has been admitted to the medical floor for further evaluation and management. Chest CT without contrast this morning showed severe COPD, tiny nonspecific left upper lobe pulmonary nodule measuring 5 mm. We are consulted to help evaluate the pulmonary nodule at this time. The patient currently is sitting in bed complaining of severe sharp pain on the mid upper chest, which is worsened with any chest movement. He appears anxious and has a mild central body tremor which per patient is due to the pain. He reports no cough, wheezing, SOB, fever, chills or bowel habit change or unintentional weight change. 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 He did lift and carried heavy stuff occasionally for the job. He reports he had severe pain with fresh blood noted on the surgical incision site once last month on the Mother's Day. At that time, he worked hard in the yard. PAST MEDICAL HISTORY: 1. Hypertension. 2. Coronary artery disease, status post coronary bypass surgery on 02/03/[address] Zurita in [place]. 3. Nicotine dependence. 4. Alcohol dependence. 5. Possible atrial fibrillation. 6. Facial reconstruction following a crush injury while playing baseball. 7. Hernia repair. 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 He is . He has 1 child. He used to smoke half a pack per day for a long time. He quit smoking and started using vapor cigarettes since this January. He is a heavy drinker and drinks vodka regularly. He has binge drinking recently for the severe pain on his chest. He has no history of illicit drug use. FAMILY HISTORY Reviewed and noncontributory. ALLERGIES: Corticosteroid and prednisone. REVIEW OF SYSTEMS: A 10-point review of systems was conducted and the pertinent is listed within HPI, otherwise noncontributory. PHYSICAL EXAMINATION: Vital Signs: Temperature 98, blood pressure 190/92, pulse 66, respiratory rate 18, and oxygen saturation 96% on room air. General: The patient appears older than stated age. He currently has mild central body tremor which per patient is related to the severe pain on the mid upper chest. He has no acute cardiac or pulmonary distress at this time. Respiratory: Respirations are even and unlabored. Symmetrical excursion. Auscultation reveals prolonged expiratory phase. Otherwise clear. Cardiovascular: Regular rate and rhythm. Gastrointestinal: Normoactive bowel sounds in all 4 quadrants. Soft, nontender, and flat. Extremities: No pedal edema. No cyanosis. No clubbing. Dorsalis pedis 2+ bilaterally. Neurologic: Alert and oriented x4. Speech fluent. Follows commands. LABORATORY DATA: White blood cells 7.45, hemoglobin 13.7, hematocrit 40.3, and platelet 156,000. Sodium 138, potassium 3.9, chloride 102, carbon dioxide 25, BUN 19, creatinine 1.0, and glucose 110. ABG: pH 7.41, pCO2 40, PO2 82, HC03 25.4, base excess 0.7 and oxyhemoglobin 95.5. IMAGING DATA: CT chest without contrast this morning showed advanced COPD, some mild linear scarring in the lung bases. No infiltrates or edema. A tiny 5 mm supple pleural nodule in the left upper lobe. ASSESSMENT: This is a 58-year-old male with a medical history of hypertension, coronary artery disease, nicotine dependence, alcohol dependence, and possible atrial fibrillation. He has been admitted to the medical floor since yesterday with mid upper chest wall pain secondary to coronary bypass graft on 02/03/2019. 1. Pleural nodule in the left upper lobe measuring 5 mm. 2. Chest wall pain secondary to coronary bypass graft in 02/03/2019. PLAN: 1. Follow up outpatient; first will repeat CT scan in 3 to 6 months to confirm persistence. 2. Recommend discharge patient with short-acting beta adrenergic inhaler and use as needed for SOB. 3. Continue bronchodilators while in the hospital. 4. Continue DVT prophylaxis V. 5. Further recommendations pending hospital course. Thank you for the courtesy of this consult. Dictated by MURTAZA Kenney for Telly Chapman MD cc: MURTAZA Kenney MD [facility]
[2019-05-15 07:40] VITALS: BP 149/74
[2019-05-15] MEDS: NEURONTIN PO SCH (09:42)
[2019-05-15] MEDS: ASPIRIN PO SCH (09:42)
== END 2019-05-15 11:14 | disposition home or self-care (01) | DRG 313 ==
LOC: 4N 11:03 → ED 11:03
PROVIDERS: ATTEND Internal Medicine
CPT/HCPCS: 71010; 71045; 71250; 80048; 80053; 80307; 80320; 82055; 82550; 82805; 83880; 84484; 85025; 85027; 85610; 85651; 85730; 86140; 93005; 94640; 94761; A9270; G0480; G6040; J1170; J1650; J2060; J2270; J2405